=== PATIENT | male | born 1965 | race Caucasian/White ===

== ENCOUNTER → 2017-08-08 07:02 | Outpatient (CLI) | payer OTHER, SELFPAY ==
--- NOTE | 2017-08-08 07:06 | ECHOD_ITS ---
Reason For Study: CAD Procedure This was a 2D Doppler, Color Flow transthoracic echocardiogram. The exam was of fair technical quality due to body habitus. The study was technically difficult. Exam performed in department. Left Ventricle Normal LV size. Segmental dysfunction with preserved ejection fraction (see wall motion). The estimated ejection fraction is 55 %. Transmitral doppler flow suggestive of impaired relaxation of left ventricle. Mid-inferoseptal : Hypokinetic. Mid-anteroseptal : Hypokinetic. Anterior [place] : Hypokinetic. Septal [place] : Hypokinetic. Right Ventricle Normal RV size. Normal systolic function. Atria Normal left atrium. Normal right atrium. No doppler evidence for ASD. Mitral Valve There is no mitral annular calcification. Normal mitral valve. Trivial mitral valve insufficiency. Tricuspid Valve Normal tricuspid valve. Trivial tricuspid valve insufficiency. Unable to estimate RV systolic pressure/pulmonary artery pressure due to technically difficult study. Aortic Valve Trisinus/trileaflet aortic valve. Normal aortic valve. Pulmonic Valve The pulmonic valve is not well visualized. Great Vessels Normal sized aortic root. Pericardium/Pleural No pericardial effusion. MMode/2D Measurements & Calculations LVIDd: 5.0 cm IVSd: 1.1 cm Ao root diam: 3.1 cm LVIDs: 3.8 cm LVPWd: 1.1 cm RVDd: 3.3 cm FS: 25.2 % LAV(MOD-sp4): 33.1 ml EDV(MOD-sp2): 104.0 ml SV(MOD-sp2): 56.5 ml EF(MOD-sp2): 54.4 % LA A4 area: 13.4 cm2 RA A4 area: 12.3 cm2 Doppler Measurements & Calculations MV E max rene: 55.1 cm/sec Lat Peak E' Rene: 11.1 cm/sec Med Peak E' Rene: 7.5 cm/sec MV A max rene: 64.8 cm/sec E/E' lat: 5.0 E/E' med: 7.4 MV E/A: 0.85 Ao V2 max: 98.5 cm/sec LV V1 max: 95.4 cm/sec PA V2 max: 100.9 cm/sec Ao max P.9 mmHg LV V1 max P.6 mmHg PI end-d rene: 123.5 cm/sec Interpretation Summary The study was technically difficult. Segmental dysfunction with preserved ejection fraction (see wall motion). The estimated ejection fraction is 55 %. Trivial mitral valve insufficiency. Trivial tricuspid valve insufficiency. Transmitral doppler flow suggestive of impaired relaxation of left ventricle Ordering Physician: Samuel Jansen Referring Physician: SAMARIA BLAND Performed By: Madeline Moore, DEMARIO, RVT
--- NOTE | 2017-08-08 12:04 | STRESSREP ---
Stress Test Report Date: 08/08/2017 Procedure: Exercise tolerance test/imaging study Indications: Chest pain; CAD; CABG Consent: Per the patient Procedure: The patient exercised on a Zoltan protocol for 4 minutes and 30 seconds completing Stage I and 1 minute 30 seconds of Stage II achieving a peak heart rate of 153 bpm (90 % predicted maximal heart rate) with a peak blood pressure 190/104 mmHg and a peak MET capacity of 6 METs. The baseline ECG demonstrated normal sinus rhythm. The peak exercise ECG demonstrated somatic/motion artifact with no obvious ECG changes. There were no cardiac dysrhythmias pretest, during exercise, or recovery. The functional capacity was considered decreased. There was no complaint of chest discomfort during exercise or recovery. The examination was discontinued secondary to leg discomfort and dyspnea. Impression: 1. Technically adequate (percent predicted maximal heart rate greater than 85%) exercise tolerance test 2. Peak exercise ECG with somatic/motion artifact with no obvious ECG changes 3. Were no cardiac dysrhythmias pretest, during exercise, or recovery. 4. Nuclear images pending Myocardial perfusion imaging study: Technique: The patient was injected with 11.8 mCi of technetium 99m Cardiolite and subsequently rest SPECT Cardiolite nuclear imaging was obtained in the horizontal long, vertical long, and short axis views. The patient exercised on a Zoltan protocol for 4 minutes and 30 seconds completing Stage I and 1 minute 30 seconds of Stage II achieving a peak heart rate of 153 bpm (90 % predicted maximal heart rate) with a peak blood pressure 190/104 mmHg and a peak MET capacity of 6 METs. The patient was injected with 84.1 mCi of technetium 99m Cardiolite and subsequently stress SPECT Cardiolite nuclear imaging was obtained in the horizontal long, vertical long, and short axis views. A gated Cardiolite study at peak stress was obtained. Interpretation: Rest and stress SPECT Cardiolite nuclear imaging status post realignment, normalization, and attenuation correction, demonstrates the appearance of a small area of diminished tracer uptake near the distal anterior and anterior apical segments without significant change between rest and stress. There is end systolic thickening and brightening. The gated Cardiolite study demonstrates myocardial thickening and inward wall motion. The reported LVEF is 55 %. Impression: 1. Rest and stress SPECT Cardiolite nuclear imaging demonstrate a small area of diminished myocardial perfusion/tracer uptake in portions of the distal anterior and anterior apical segments without significant change between rest and stress potentially compatible with an area of previous myocardial injury/infarction although soft tissue attenuation/artifact and physiologic apical thinning cannot be excluded. There are no myocardial perfusion changes consider diagnostic for stress-induced myocardial ischemia. 2. The gated Cardiolite study reports an LVEF of 55 %. This note was generated with [employer] software. It may contain incorrect words, spelling, and punctuation that were not noted in checking the note before signing.
--- NOTE | 2017-08-08 12:13 | STRESSREP_ITS ---
Stress Test Report Date: 08/08/2017 Procedure: Exercise tolerance test/imaging study Indications: Chest pain; CAD; CABG Consent: Per the patient Procedure: The patient exercised on a Zoltan protocol for 4 minutes and 30 seconds completing Stage I and 1 minute 30 seconds of Stage II achieving a peak heart rate of 153 bpm (90 % predicted maximal heart rate) with a peak blood pressure 190/104 mmHg and a peak MET capacity of 6 METs. The baseline ECG demonstrated normal sinus rhythm. The peak exercise ECG demonstrated somatic/motion artifact with no obvious ECG changes. There were no cardiac dysrhythmias pretest, during exercise, or recovery. The functional capacity was considered decreased. There was no complaint of chest discomfort during exercise or recovery. The examination was discontinued secondary to leg discomfort and dyspnea. Impression: 1. Technically adequate (percent predicted maximal heart rate greater than 85% ) exercise tolerance test 2. Peak exercise ECG with somatic/motion artifact with no obvious ECG changes 3. Were no cardiac dysrhythmias pretest, during exercise, or recovery. 4. Nuclear images pending Myocardial perfusion imaging study: Technique: The patient was injected with 11.8 mCi of technetium 99m Cardiolite and subsequently rest SPECT Cardiolite nuclear imaging was obtained in the horizontal long, vertical long, and short axis views. The patient exercised on a Zoltan protocol for 4 minutes and 30 seconds completing Stage I and 1 minute 30 seconds of Stage II achieving a peak heart rate of 153 bpm (90 % predicted maximal heart rate) with a peak blood pressure 190/104 mmHg and a peak MET capacity of 6 METs. The patient was injected with 84.1 mCi of technetium 99m Cardiolite and subsequently stress SPECT Cardiolite nuclear imaging was obtained in the horizontal long, vertical long, and short axis views. A gated Cardiolite study at peak stress was obtained. Interpretation: Rest and stress SPECT Cardiolite nuclear imaging status post realignment, normalization, and attenuation correction, demonstrates the appearance of a small area of diminished tracer uptake near the distal anterior and anterior apical segments without significant change between rest and stress. There is end systolic thickening and brightening. The gated Cardiolite study demonstrates myocardial thickening and inward wall motion. The reported LVEF is 55 %. Impression: 1. Rest and stress SPECT Cardiolite nuclear imaging demonstrate a small area of diminished myocardial perfusion/tracer uptake in portions of the distal anterior and anterior apical segments without significant change between rest and stress potentially compatible with an area of previous myocardial injury/ infarction although soft tissue attenuation/artifact and physiologic apical thinning cannot be excluded. There are no myocardial perfusion changes consider diagnostic for stress-induced myocardial ischemia. 2. The gated Cardiolite study reports an LVEF of 55 %. This note was generated with [employer] software. It may contain incorrect words, spelling, and punctuation that were not noted in checking the note before signing.
== END ==
LOC: CVS 07:03
PROVIDERS: Family Provider Internal Medicine; PCP Internal Medicine; Visit Provider Internal Medicine Cardiovascular Disease
DX: I25.10 Atherosclerotic heart disease of native coronary artery without angina pectoris (principal); I25.2 Old myocardial infarction; E78.5 Hyperlipidemia, unspecified; I10 Essential (primary) hypertension; I49.3 Ventricular premature depolarization; Z95.1 Presence of aortocoronary bypass graft
CPT/HCPCS: 78452; 93017; 93306; A9500; A4216

== ENCOUNTER 2021-06-23 18:04 | Outpatient (CLI) | payer BC, SELFPAY ==
--- NOTE | 2021-06-23 18:24 | US_ITS ---
STUDY: NECK SOFT TISSUE ULTRASOUND REASON FOR EXAM: Male, 55 years old. RT LYMPHADENITIS TECHNIQUE: Ultrasound evaluation of the neck soft tissue was performed with real-time and static mayberry-scale imaging. COMPARISON: None. FINDINGS: Right sided lymph nodes are noted measuring 1.3 to 2.3 cm in maximum size. These nodes are slightly enlarged but normal in morphology. They are likely reactive in nature. Right submandibular gland is 7.5 x 6.3 x 5.2 cm with a 1.8 cm stone. US/Head/Neck Soft Tissue IMPRESSION: Mildly enlarged right-sided nodes. There is a stone noted within the right submandibular gland. Electronically Signed: Babar Jaquez DO at 20:09 EDT ,
== END 2021-06-23 23:59 | disposition home or self-care (01) ==
LOC: US 18:05
PROVIDERS: PCP Internal Medicine; Visit Provider Nurse Practitioner
DX: I88.9 Nonspecific lymphadenitis, unspecified (principal)
CPT/HCPCS: 76536

== ENCOUNTER 2021-07-08 16:56 | Emergency (ER) | payer BC, SELFPAY ==
[2021-07-08 16:59] VITALS: BP 145/96; PULSE 80; RESP 18; TEMP 36.2; O2SAT 95; BMI 32.8
--- NOTE | 2021-07-08 17:15 | EDS_ITS ---
HPI History of Present Illness Chief Complaint: Other, Pain/Inj Narrative Narrative: Patient presents with obstruction of his submandibular salivary gland. He states he has history of multiple submandibular stones. On occasion he will get swelling in his right lower jaw. He gets put on antibiotics. He states he had a CT scan done 2 to 3 weeks ago which did show that he had a stone. He follows up with Dr. Burnett, who is offered previous removal of his submandibular gland but the patient declines. Patient noticed that on the floor of his mouth on the right side that he feels as if the stone is present and about to come out. He states he can feel it that it is roughened surface but cannot grab it to pull it out. He denies any fevers or chills. He states the swelling of his submandibular gland has gone down. He presents trying to have removal of the stone in his duct on the floor of his mouth. He denies any fevers or chills. No difficulty swallowing or breathing. [facility] Medical History Acute coronary syndrome Atherosclerotic heart disease of [place] coronary artery without angina pectoris Essential hypertension Hyperlipidemia Hypertension Hypothyroidism Old myocardial infarction Palpitations Premature ventricular contraction Home Medications amlodipine 2.5 mg tablet 2.5 mg PO QDAY 07/24/17 [History Last Taken Unknown] aspirin 81 mg tablet,delayed release 81 mg PO QDAY 07/24/17 [History Last Taken Unknown] citalopram 20 mg tablet 20 mg PO QDAY 07/24/17 [History Last Taken Unknown] clopidogrel 75 mg tablet 75 mg PO QDAY 07/24/17 [History Last Taken Unknown] hydrochlorothiazide 25 mg tablet 25 mg PO QDAY 07/24/17 [History Last Taken Unknown] levothyroxine 88 mcg tablet 88 mcg PO QDAY 07/24/17 [History Last Taken Unknown] metoprolol tartrate 25 mg tablet 12.5 mg PO BID tab 07/24/17 [History Last Taken Unknown] nitroglycerin 0.4 mg sublingual tablet 0.4 mg SUBLINGUAL Q5-15M PRN 07/24/17 [History Last Taken Unknown] simvastatin 20 mg tablet 20 mg PO QPM 07/24/17 [History Last Taken Unknown] lisinopril 2.5 mg tablet 2.5 mg PO QDAY #90 tab 10/06/19 [Rx Last Taken Unknown] Allergy/AdvReac Type Severity Reaction Status Date / Time No Known Allergies Allergy Unverified 07/08/21 16:57 Family History Mother Diabetes Surgical History Aortocoronary bypass status (~12/2011) Social History Smoking Status: Unknown if ever smoked alcohol intake: never substance use type: does not use ROS ROS ED ROS Narrative Constitutional: No fever, no chills. HEENT: No sore throat. No neck pain. No loss of vision. No rhinorrhea. Stone in submandibular duct area near molar of right lower jaw. Cardiovascular: No chest pain. No palpitations. No pedal edema. Respiratory: No cough, no shortness of breath. Abdominal: No abdominal pain. No nausea. No vomiting. Genitourinary: No dysuria. No hematuria. Musculoskeletal: No myalgias. No arthralgias. Neurologic: No headaches. No dizziness. No lightheadedness. Skin: No rash. No change in color. Psychiatric: No depression. No anxiety. EXAM Physical Exam Narrative Exam Narrative: Afebrile. Vital signs noted. HEENT: Normocephalic. Atraumatic. PERRL, EOMI. Neck soft and supple. No point tenderness or step off. No drooling or trismus. Palpation to the floor of his mouth near his molar does reveal a somewhat large salivary stone. No fluctuance. No woody edema. Airway patent. No drooling or trismus. Cardiovascular: Regular rate and rhythm. No murmurs, rubs, or gallops appreciated. Respiratory: No tachypnea. Lungs clear to auscultation bilaterally. Gastrointestinal: Abdomen soft, nontender, with normoactive bowel sounds. No rebound or guarding. Neurological: Awake. Alert. Nonfocal, nonlateralizing. Skin: No rash. Normal color. No pallor. Musculoskeletal: No pedal edema. Full range of motion extremities. Const Vital Signs: 07/08/21 16:59 07/08/21 17:33 Temperature 97.1 F L Temperature Source Temporal Pulse Rate 80 Respiratory Rate 18 Respiratory Pattern Normal Blood Pressure 145/96 H Blood Pressure Mean 112 Pulse Ox 95 Oxygen Delivery Method Room Air MDM MDM MDM Narrative Medical decision making narrative: I discussed the patient with his fabric worker foreman, Dr. Burnett. He states that based on the location, it is probably 3 to 4 mm away from the puncta. He did recommend gentle milking of the duct. I did perform this and milked the stone forward, and it was removed. It is a sizable stone probably 5 mm in size at least. Patient's discomfort was fully relieved. He will still follow-up with his fabric worker foreman. I feel he can be discharged safely home. He had been told of the risk of scarring of the duct and passing a stone that large. He acknowledges an understanding. Disposition is discharged home in improved and stable condition. Discharge Plan Triage Chief Complaint: Other, Pain/Inj ED Provider: Justin Jain Dx/Rx/DC Orders Clinical Impression: Submandibular sialodocholithiasis, Submandibular duct obstruction Instructions: ED Salivary Gland Stones Prescriptions: No Action nitroglycerin 0.4 mg tablet, sublingual 0.4 mg SUBLINGUAL Q5-15M PRNRF: 0 clopidogrel 75 mg tablet 75 mg PO QDAY RF: 0 metoprolol tartrate 25 mg tablet 12.5 mg PO BID RF: 0 amlodipine 2.5 mg tablet 2.5 mg PO QDAY RF: 0 levothyroxine 88 mcg tablet 88 mcg PO QDAY RF: 0 hydrochlorothiazide 25 mg tablet 25 mg PO QDAY RF: 0 simvastatin 20 mg tablet 20 mg PO QPM RF: 0 citalopram 20 mg tablet 20 mg PO QDAY RF: 0 aspirin 81 mg tablet,delayed release (DR/EC) 81 mg PO QDAY RF: 0 lisinopril 2.5 mg tablet 2.5 mg PO QDAY Qty: 90 RF: 0 Primary Care Provider: Becky Crook Referrals: Hema Hudson MD [STAFF PHYSICIAN] - As Needed Becky Crook DO [Primary Care Provider] - Disposition Disposition: Home, Self Care
== END 2021-07-08 17:56 | disposition home or self-care (01) ==
PROVIDERS: Emergency Provider Emergency Medicine; PCP Internal Medicine; Visit Provider Emergency Medicine
DX: K11.5 Sialolithiasis (principal); I25.10 Atherosclerotic heart disease of native coronary artery without angina pectoris; I10 Essential (primary) hypertension; E78.5 Hyperlipidemia, unspecified; E03.9 Hypothyroidism, unspecified; I25.2 Old myocardial infarction; Z95.1 Presence of aortocoronary bypass graft
CPT/HCPCS: 99282

== ENCOUNTER 2021-11-10 08:33 | Emergency (ER) | payer BC, SELFPAY ==
[2021-11-10 08:35] VITALS: BP 147/87; PULSE 94; RESP 14; TEMP 36.7; O2SAT 97; BMI 33.9
--- NOTE | 2021-11-10 08:48 | EDS_ITS ---
HPI History of Present Illness Chief Complaint: Headache Informant: patient Onset/Context/Timing Onset: Yesterday Context: Gradual Timing: Continuous Quality -Headache: Positive for Other (Pressure) Location: Between eyes Worsened by: Nothing Relieved by: Nothing Associated Symptoms/Injury Associated Symptoms: Positive for Nausea, Vomiting and Sinus Pressure; Negative for Fever, Sore Throat, Numbness, Tingling, Preceding Aura, Visual Changes, Blurred Vision, Photophobia or Visual Loss Injury - FOSTER: Negative for Direct Trauma Narrative Narrative: Patient presents with a headache that began last evening. Patient states it is gradually gotten worse. Patient states it feels like somebody is pushing between his eyes. Patient denies any radiation of the pain. Patient states nothing makes it worse and nothing makes it better. Patient admits to some nausea and one episode of vomiting today. Patient denies any fevers or chills. Patient denies any visual changes or scotoma. Patient denies any photophobia. Patient states he did feel lightheaded today. Patient denies any recent COVID- 19 exposures. Patient has not been vaccinated against COVID-19. [facility] Medical History Acute coronary syndrome Atherosclerotic heart disease of [place] coronary artery without angina pectoris Essential hypertension Hyperlipidemia Hypertension Hypothyroidism Old myocardial infarction Palpitations Premature ventricular contraction Home Medications amlodipine 2.5 mg tablet 2.5 mg PO QDAY 07/24/17 [History Last Taken Unknown] aspirin 81 mg tablet,delayed release 81 mg PO QDAY 07/24/17 [History Last Taken Unknown] citalopram 20 mg tablet 20 mg PO QDAY 07/24/17 [History Last Taken Unknown] clopidogrel 75 mg tablet 75 mg PO QDAY 07/24/17 [History Last Taken Unknown] hydrochlorothiazide 25 mg tablet 25 mg PO QDAY 07/24/17 [History Last Taken Unknown] levothyroxine 88 mcg tablet 75 mcg PO QDAY 07/24/17 [History Last Taken Unknown] metoprolol tartrate 25 mg tablet 12.5 mg PO BID 07/24/17 [History Last Taken Un known] nitroglycerin 0.4 mg sublingual tablet 0.4 mg sublingual Q5-15M PRN 07/24/17 [History Last Taken Unknown] simvastatin 20 mg tablet 20 mg PO QPM 07/24/17 [History Last Taken Unknown] lisinopril 2.5 mg tablet 2.5 mg PO QDAY #90 tabs 10/06/19 [Rx Last Taken Unknown] Allergy/AdvReac Type Severity Reaction Status Date / Time No Known Allergies Allergy Unverified 11/10/21 08:34 Family History Mother Diabetes Surgical History Aortocoronary bypass status (~12/2011) Social History Smoking Status: Unknown if ever smoked alcohol intake: never substance use type: does not use ROS ROS ED Constitutional Constitutional ED: Denies chills or fever(s) Eyes Eyes: Denies blurry vision or change in vision ENT ENT ED: Denies rhinorrhea or sore throat Cardiovascular Cardiovascular: Denies chest pain or palpitations Respiratory/Chest Respiratory/Chest: Denies cough or dyspnea Gastrointestinal Gastrointestinal: Reports nausea and vomiting Genitourinary Genitourinary ED: Denies dysuria or hematuria Musculoskeletal Musculoskeletal: Denies back pain or neck pain Integumentary Denies abscess or rash Neurologic Neurologic: Reports headache(s); Denies weakness Allergic/Immunologic Allergic/Immunologic ED: Denies mouth swelling or urticaria EXAM Physical Exam Const Vital Signs: 11/10/21 08:35 Temperature 98.1 F Temperature Source Oral Pulse Rate 94 Respiratory Rate 14 Blood Pressure 147/87 H Blood Pressure Mean 107 Pulse Ox 97 Oxygen Delivery Method Room Air Positive well nourished and well developed General Appearance ED: well developed and NAD HEENT Reports moist mucous membranes Negative for temporal artery tenderness Face and Sinus: Negative for sinus tenderness Neck supple and no JVD Resp normal respiratory effort and clear to auscultation bilaterally Cardio regular rate, regular rhythm and no murmurs GI normal to inspection, nondistended, normoactive bowel sounds and non-tender Palpation: soft Extremity normal to inspection General Extremety ED: Negative for edema or tenderness General Extremity: Negative for edema Neuro oriented x3, CN's II-XII intact bilaterally and no sensory deficits noted Sensorium / Orientation: alert Motor Exam: strength 5/5 throughout Psych mental status grossly normal Skin no rashes or lesions noted MDM MDM MDM Narrative Medical decision making narrative: Patient was given IV fluids, Reglan, and Benadryl. CT scan of the brain was obtained. There is no acute intracranial abnormality. This was interpreted by the radiologist and reviewed by myself. Patient states his headache was improving on reevaluation. Patient was given injection of Toradol here. Patient was instructed to rest in a dark quiet room. Patient was instructed to follow-up with his primary care physician in 5 to 7 days. Patient understood and was agreeable with the plan. All questions were answered. Radiography Diagnostic Testing: Clinical Impression(s) from Imaging Studies Brain CT 11/10/21 08:58 IMPRESSION: Chronic involutional changes of the brain. Electronically Signed: Santi Sutherland MD at 10:09 EDT , Discharge Plan Triage Chief Complaint: Headache ED Provider: Mil Olvera Dx/Rx/DC Orders Clinical Impression: Headache, Essential hypertension Instructions: ED Headache Unspecified Prescriptions: No Action nitroglycerin 0.4 mg tablet, sublingual 0.4 mg SUBLINGUAL Q5-15M PRN clopidogrel 75 mg tablet 75 mg PO QDAY metoprolol tartrate 25 mg tablet 12.5 mg PO BID amlodipine 2.5 mg tablet 2.5 mg PO QDAY levothyroxine 88 mcg tablet 75 mcg PO QDAY hydrochlorothiazide 25 mg tablet 25 mg PO QDAY simvastatin 20 mg tablet 20 mg PO QPM citalopram 20 mg tablet 20 mg PO QDAY aspirin 81 mg tablet,delayed release (DR/EC) 81 mg PO QDAY lisinopril 2.5 mg tablet 2.5 mg PO QDAY Qty: 90 0RF Primary Care Provider: Becky Crook Referrals: Becky Crook DO [Primary Care Provider] - 5-7 Days Disposition Disposition: Home, Self Care
--- NOTE | 2021-11-10 08:58 | CT_ITS ---
STUDY: CT BRAIN WITHOUT CONTRAST REASON FOR EXAM: Male, 55 years old. Pain RADIATION DOSAGE (If Supplied By Facility): CTDIvol = ( 44.99 ) mGy, DLP = ( 846.73 ) mGycm TECHNIQUE: Transaxial CT imaging of the brain was performed without administration of intravenous contrast material. Individualized dose optimization techniques were used for this CT. COMPARISON: No relevant priors. FINDINGS: Normal soft tissue structures. Normal calvarium. There is mild cerebral atrophy with widening of the extra-axial spaces and ventricular dilatation. There are areas of decreased attenuation within the white matter tracts of the supratentorial brain, consistent with microvascular disease changes. Normal basal ganglia and thalami. Normal brainstem. Normal cerebellum. There is no intracranial hemorrhage. There are no findings of an acute ischemic infarction. Total thickening in the right sphenoid sinus consistent with chronic sinusitis. CT/Brain/Head without Contrast IMPRESSION: Chronic involutional changes of the brain. Electronically Signed: Santi Sutherland MD at 10:09 EDT ,
[2021-11-10] MEDS: Metoclopramide 10 MG/2 ML Vial IV (09:32)
[2021-11-10] MEDS: DiphenhydrAMINE 50 MG/ML Syringe 25 MG IV (09:32)
[2021-11-10] MEDS: 0.9% Normal Saline 1,000 ML 999 ML IV (09:32)
[2021-11-10 10:36] VITALS: BP 128/75; O2SAT 93
[2021-11-10] MEDS: Ketorolac 30 MG/ML Syringe IV (10:46)
== END 2021-11-10 10:51 | disposition home or self-care (01) ==
PROVIDERS: Emergency Provider Emergency Medicine; PCP Internal Medicine; Visit Provider Emergency Medicine
DX: R51.9 Headache, unspecified (principal); R11.2 Nausea with vomiting, unspecified; I25.10 Atherosclerotic heart disease of native coronary artery without angina pectoris; Z28.310 Unvaccinated for COVID-19; I10 Essential (primary) hypertension; E78.5 Hyperlipidemia, unspecified; Z95.1 Presence of aortocoronary bypass graft; I25.2 Old myocardial infarction
CPT/HCPCS: 70450; 99283; J7030; A4216

== ENCOUNTER 2021-11-16 01:04 | Emergency (ER) | payer BC, SELFPAY ==
[2021-11-16 01:06] VITALS: BP 165/92; PULSE 76; RESP 29; TEMP 37.2; O2SAT 98; BMI 32.5
[2021-11-16] MEDS: 0.9% Normal Saline 1,000 ML 999 ML IV (02:04)
[2021-11-16] MEDS: Ondansetron 4 MG/2 ML Vial IV (02:04)
[2021-11-16 02:14] LABS: Absolute Neutrophil Count 1.4 X10^3/uL (2.0-7.7); Basophil# 0.02 X10^3/uL; Basophil% 0.5 % (0-1); Eosinophil# 0.02 X10^3/uL; Eosinophils% 0.5 % (0-5); Hematocrit 52.6 % (40-54); Lymphocyte % 55.4 % (19-41); Mean Corp Hgb Conc 36.7 g/dL (32-36); Mean Corpuscular Volume 90.1 fL (80-94); Mean Platelet Vol. 10.1 fl (6.2-12.0); Monocyte# 0.46 X10^3/uL; Monocyte% 10.6 % (0-10); NRBC Flagged by Analyzer 0 % (0-5); Neutrophil # 1.42 X10^3/uL (2.7-7.7); Neutrophil % 32.8 % (47-70); Platelet Count 117 K/mm3 (150-450); RBC Distribution Width CV 12.1 % (11.6-14.6); Red Blood Count 5.84 M/mm3 (4.6-6.2); White Blood Count 4.3 K/mm3 (4.4-11.0)
[2021-11-16 02:15] LABS: Differential Indicated SCAN CRITERIA MET; Hemoglobin 19.3 g/dL (13.0-16.5)
[2021-11-16 02:40] LABS: AST(SGOT) 40 U/L (15-37); Alanine Aminotransfer ALT/SGPT 30 U/L (16-61); Alkaline Phosphatase 80 U/L (45-117); Anion Gap 12 (5-15); BUN 19 mg/dL (7-18); BUN/Creat Ratio 19.8 RATIO (10-20); Bilirubin, Direct 0.18 mg/dL (0.00-0.30); Calcium,Total 9.2 mg/dL (8.5-10.1); Chloride 107 mmol/L (98-107); Creatinine, Serum 0.96 mg/dL (0.70-1.30); EST Glomerular Filtration Rate 86 mL/min (>60); Est Glom Filt Rate - Afr Amer 105 mL/min (>60); Estimated Creatinine Clearance 81.29 ml/min; Globulin 3.7 g/dL (2.2-4.2); Glucose 90 mg/dL (74-106); Lipase 390 U/L (73-393); Magnesium 2.2 mg/dL (1.6-2.6); Potassium 3.1 mmol/L (3.5-5.1); Protein, Total 7.7 g/dL (6.4-8.2); Sodium Level 140 mmol/L (136-145)
[2021-11-16 03:13] LABS: Differential Comment SCANNED
--- NOTE | 2021-11-16 03:18 | EDS_ITS ---
HPI History of Present Illness Chief Complaint: Weakness Narrative Narrative: Patient is a 55-year-old male with past medical history hypothyroidism hyperlipidemia known CAD with previous bypass in 2011 and hypertension. He states for about 5 days he has had severe generalized fatigue with nausea without vomiting. He states that his mother stays with him and she was sick just prior to him becoming sick. He states however his mother was able to resolve her symptoms in approximately 3 days and its been 5-6 for him without any symptom improvement and secondary to this he comes in for evaluation [facility] Medical History Acute coronary syndrome Atherosclerotic heart disease of [place] coronary artery without angina pectoris Essential hypertension Hyperlipidemia Hypertension Hypothyroidism Old myocardial infarction Palpitations Premature ventricular contraction Home Medications amlodipine 2.5 mg tablet 2.5 mg PO QDAY 07/24/17 [History Last Taken Unknown] aspirin 81 mg tablet,delayed release 81 mg PO QDAY 07/24/17 [History Last Taken Unknown] hydrochlorothiazide 25 mg tablet 25 mg PO QDAY 07/24/17 [History Last Taken Unknown] levothyroxine 88 mcg tablet 75 mcg PO QDAY 07/24/17 [History Last Taken Unknown] metoprolol tartrate 25 mg tablet 25 mg PO BID 07/24/17 [History Last Taken Unknown] nitroglycerin 0.4 mg sublingual tablet 0.4 mg sublingual Q5-15M PRN 07/24/17 [History Last Taken Unknown] simvastatin 20 mg tablet 20 mg PO QPM 07/24/17 [History Last Taken Unknown] lisinopril 2.5 mg tablet 2.5 mg PO QDAY #90 tabs 10/06/19 [Rx Last Taken Unknown] amlodipine 5 mg tablet mg 11/16/21 [History Last Taken Unknown] nirmatrelvir 300 mg (150 mg x2)-ritonavir 100 mg tablet,dose pack(EUA) (Paxlovid) See Rx Instructions PO .COMPLEX #30 tabs 11/16/21 [Rx Last Taken Unknown] ondansetron 4 mg disintegrating tablet 4 mg PO TID PRN nausea and vomiting #21 tabs 11/16/21 [Rx Last Taken Unknown] simvastatin 20 mg tablet 20 mg PO DAILY 11/16/21 [History Last Taken Unknown] Allergy/AdvReac Type Severity Reaction Status Date / Time No Known Allergies Allergy Unverified 11/10/21 08:34 Family History Mother Diabetes Surgical History Aortocoronary bypass status (~12/2011) Social History Smoking Status: Current some day smoker tobacco type: cigarettes alcohol intake: never substance use type: does not use ROS ROS ED Constitutional Constitutional ED: Reports other Details: Positive fatigue ; Denies chills or fever(s) ENT ENT ED: Reports rhinorrhea; Denies sore throat Cardiovascular Cardiovascular: Denies chest pain Respiratory/Chest Respiratory/Chest: Denies cough or dyspnea Gastrointestinal Gastrointestinal: Reports nausea; Denies abdominal pain, diarrhea or vomiting Genitourinary Genitourinary ED: Denies dysuria Musculoskeletal Musculoskeletal: Reports myalgias Integumentary Denies rash Neurologic Neurologic: Denies headache(s) Hematologic/Lymphatic Hematologic/Lymphatic: Denies easy bleeding or easy bruising EXAM Physical Exam Const Vital Signs: 11/16/21 01:06 11/16/21 01:10 11/16/21 03:29 Temperature 98.9 F Temperature Source Oral Pulse Rate 76 76 Respiratory Rate 29 H 17 Respiratory Pattern Normal Blood Pressure 165/92 H 146/92 H Blood Pressure Mean 116 Pulse Ox 98 96 Oxygen Delivery Method Room Air Positive well nourished, well developed and obese General Appearance ED: well developed Nutritional Appearance: obese HEENT Reports dry mucous membranes Mouth ED: Yes dry mucous membranes Mouth: dry mucous membranes Eyes PERRL and EOMs intact bilaterally Neck supple Neck Narrative: Positive anterior cervical if adenopathy noted Resp normal respiratory effort and clear to auscultation bilaterally Cardio regular rate and regular rhythm Rate: other Other Details: Radial pulses are plus 2 out of 4 bilaterally are equal and GI non-distended GI Narrative: Abdomen is obese soft and nondistended with normoactive bowel sounds. There is mild pain on palpation in the midepigastric region without voluntary guarding or rigidity. No pulsatile mass or fluid wave Auscultation: normoactive bowel sounds Palpation: soft Extremity normal to inspection Neuro oriented x3 and CN's II-XII intact bilaterally Sensorium / Orientation: alert Psych mental status grossly normal Skin no rashes or lesions noted Skin Narrative: Skin turgor slightly increased MDM MDM MDM Narrative Medical decision making narrative: Patient presented to the ER in no acute distress with hypertension but otherwise stable vitals. He reported generalized fatigue without any obvious neurologic symptoms. Therefore I felt no need for imaging studies but his history and exam is concerning for dehydration which could lead to acute kidney injury so basic blood work was obtained. Labs showed no clinically significant findings other than he is positive for COVID. At this time he is in no respiratory distress he is not requiring supplemental oxygen he does not have acute kidney injury secondary to his dehydration status. Patient was given 1 L of fluid and did report feeling better after hydration and vitals did improve. Therefore at this time as patient has COVID but is not requiring supplemental oxygen and does not have severe electrolyte derangement or AL[place]ERTINA he is safe for discharge Lab Data Attestation: I reviewed the patient's lab results. Labs: Laboratory Results - last 24 hr 11/16/21 11/16/21 01:14 01:14 WBC 4.3 L RBC 5.84 Hgb 19.3 H* Hct 52.6 MCV 90.1 MCH 33.0 H MCHC 36.7 H RDW Std Deviation 40.0 RDW Coeff of Andrew 12.1 Plt Count 117 L MPV 10.1 Immature Gran % (Auto) 0.200 Neut % (Auto) 32.8 L Lymph % (Auto) 55.4 H [place] % (Auto) 10.6 H Eos % (Auto) 0.5 Baso % (Auto) 0.5 Absolute Neuts (auto) 1.4 L Absolute Lymphs (auto) 2.40 Nucleated RBC % 0 Differential Comment SCANNED Diff Path Review May foll Sodium 140 Potassium 3.1 L Chloride 107 Carbon Dioxide 21.0 Anion Gap 12 BUN 19 H Creatinine 0.96 Estim Creat Clear Calc 81.29 Est GFR (MDRD) Af Amer 105 Est GFR (MDRD) Non-Af 86 BUN/Creatinine Ratio 19.8 Glucose 90 Calcium 9.2 Magnesium 2.2 Total Bilirubin 0.90 Direct Bilirubin 0.18 AST 40 H ALT 30 Alkaline Phosphatase 80 Total Protein 7.7 Albumin 4.0 Globulin 3.7 Lipase 390 Discharge Plan Triage Chief Complaint: Weakness ED Provider: Elvis Maldonado Dx/Rx/DC Orders Clinical Impression: COVID-19, Dehydration Instructions: Coronavirus Disease 2019 (COVID-19): Caring for Yourself or Others, ED Dehydration (Adult) Prescriptions: New ondansetron 4 mg tablet,disintegrating 4 mg PO TID PRN (Reason: nausea and vomiting) Qty: 21 0RF Paxlovid (EUA) 300 mg (150 mg x 2)-100 mg tablets,dose pack See Rx Instructions .ROUTE .COMPLEX Qty: 30 0RF Rx Instructions: take TWO 150 mg tablets of nirmatrelvir with ONE 100 mg tablet of ritonavir twice daily for 5 days No Action nitroglycerin 0.4 mg tablet, sublingual 0.4 mg SUBLINGUAL Q5-15M PRN metoprolol tartrate 25 mg tablet 25 mg PO BID amlodipine 2.5 mg tablet 2.5 mg PO QDAY levothyroxine 88 mcg tablet 75 mcg PO QDAY hydrochlorothiazide 25 mg tablet 25 mg PO QDAY simvastatin 20 mg tablet 20 mg PO QPM aspirin 81 mg tablet,delayed release (DR/EC) 81 mg PO QDAY amlodipine 5 mg tablet simvastatin 20 mg tablet 20 mg PO DAILY Label Comments: TAKE 1 TABLET BY MOUTH ONCE DAILY lisinopril 2.5 mg tablet 2.5 mg PO QDAY Qty: 90 0RF Primary Care Provider: Becky Crook Referrals: Becky Crook DO [Primary Care Provider] - Activity Restrictions/Additional Instructions: Please keep yourself hydrated and use Tylenol and/or Motrin for fever/pain control. Take the prescriptions as directed to help resolve your infection faster and if you have any further concerns or worsening of symptoms return to the ER for repeat evaluation Disposition Disposition: Home, Self Care Discharge Date/Time: 11/16/21 03:29
[2021-11-16 03:29] VITALS: BP 146/92; PULSE 76; RESP 17; O2SAT 96
[2021-11-16 08:49] LABS: Pathologist Review Reviewed
== END 2021-11-16 03:29 | disposition home or self-care (01) ==
PROVIDERS: Emergency Provider Emergency Medicine; PCP Internal Medicine; Visit Provider Emergency Medicine
DX: U07.1 COVID-19 (principal); E86.0 Dehydration; I25.10 Atherosclerotic heart disease of native coronary artery without angina pectoris; E78.5 Hyperlipidemia, unspecified; I10 Essential (primary) hypertension; E03.9 Hypothyroidism, unspecified; Z95.1 Presence of aortocoronary bypass graft; I25.2 Old myocardial infarction; F17.210 Nicotine dependence, cigarettes, uncomplicated; Z79.82 Long term (current) use of aspirin
CPT/HCPCS: 80048; 80076; 83690; 83735; 85025; 87811; 96361; 96374; 99283; J7030; A4216; J2405

== ENCOUNTER 2021-11-18 20:03 | Emergency (ER) | payer BC, SELFPAY ==
[2021-11-18 20:04] VITALS: BP 121/88; PULSE 78; RESP 16; TEMP 36.6; O2SAT 99; BMI 32.1
--- NOTE | 2021-11-18 20:34 | ED.VIS.GI ---
HPI HPI - GI History of Present Illness Chief Complaint: Abd Pain Informant: patient Abdominal Pain/Flank Pain Onset: Days Context: Gradual Onset Timing: Intermittent Quality: Cramping Location: Diffuse Current Severity: Mild Maximum Severity: Mild Worsened by: Nothing Relieved by: Nothing Nausea/Vomiting/Emesis GI Symptom: Positive for Nausea; Negative for Vomiting Onset: Days Severity: Mild Diarrhea/Melena/Hematochezia GI Symptom: Negative for Diarrhea, Melena or Hematochezia Associated Symptoms Associated Symptoms: Negative for Dysuria, Frequency, Hematuria or Urgency Narrative Narrative: 55-year-old male history of coronary disease with prior MS and [address] way bypass. Diagnosed with COVID within the last several days treated in ER on had a negative work-up otherwise. States he has had abdominal cramping. His labs at that time were unremarkable. He has been started on antiviral medication Paxlovid. Denies any fever or chills. Mild nausea no vomiting. No trouble urinating and he is moving his bowels. No melena. Prior similar symptoms: Yes Recent Illness/Hospitalization: No PFSH PFSH Medical History Acute coronary syndrome Atherosclerotic heart disease of [place] coronary artery without angina pectoris Essential hypertension Hyperlipidemia Hypertension Hypothyroidism Old myocardial infarction Palpitations Premature ventricular contraction Smoker Home Medications aspirin 81 mg tablet,delayed release 81 mg PO QDAY 07/24/17 [History Last Taken Unknown] hydrochlorothiazide 25 mg tablet 25 mg PO QDAY 07/24/17 [History Last Taken Unknown] levothyroxine 88 mcg tablet 75 mcg PO QDAY 07/24/17 [History Last Taken Unknown] metoprolol tartrate 25 mg tablet 25 mg PO BID 07/24/17 [History Last Taken Unknown] nitroglycerin 0.4 mg sublingual tablet 0.4 mg sublingual Q5-15M PRN Nausea 07/24/17 [History Last Taken Unknown] simvastatin 20 mg tablet 20 mg PO QPM 07/24/17 [History Last Taken Unknown] amlodipine 5 mg tablet 5 mg PO DAILY 11/16/21 [History Last Taken Unknown] nirmatrelvir 300 mg (150 mg x2)-ritonavir 100 mg tablet,dose pack(EUA) (Paxlovid) See Rx Instructions PO .COMPLEX #30 tabs 11/16/21 [Rx Last Taken Unknown] ondansetron 4 mg disintegrating tablet 4 mg PO TID PRN nausea and vomiting #21 tabs 08/18/22 [Rx Last Taken Unknown] simvastatin 20 mg tablet 20 mg PO DAILY 11/16/21 [History Last Taken Unknown] potassium chloride 20 mEq tablet,extended release(part/cryst) 20 meq PO BID 7 days #14 tabs 11/18/21 [Rx Last Taken Unknown] Allergy/AdvReac Type Severity Reaction Status Date / Time No Known Allergies Allergy Unverified 11/10/21 08:34 Family History Mother Diabetes Surgical History Aortocoronary bypass status (~12/2011) Social History Smoking Status: Current some day smoker tobacco type: cigarettes alcohol intake: never substance use type: does not use ROS ROS ED ROS Narrative Nausea. Abdominal cramping. Review of Systems ROS Unobtainable: Denies due to encephalopathy Constitutional Constitutional ED: Denies chills or fever(s) ENT ENT ED: Denies ear pain Cardiovascular Cardiovascular: Denies chest pain Respiratory/Chest Respiratory/Chest: Denies cough or dyspnea Gastrointestinal Gastrointestinal: Reports abdominal pain and nausea; Denies constipation, diarrhea, melena or vomiting Genitourinary Genitourinary ED: Denies dysuria or hematuria Musculoskeletal Musculoskeletal: Denies arthralgias or back pain Integumentary Denies abscess or Abrasions Neurologic Neurologic: Denies headache(s) Psychiatric Psychiatric: Denies anxiety Endocrine Endocrinology: Denies polydipsia Hematologic/Lymphatic Hematologic/Lymphatic: Denies easy bleeding Allergic/Immunologic Allergic/Immunologic ED: Denies mouth swelling EXAM Physical Exam Narrative Exam Narrative: Voicemail distress. Vital signs stable afebrile. Pulse ox 99% on room air no hypoxia. No distress. H EENT exam unremarkable neck nontender. Lungs clear to auscultation. Heart regular rhythm rate about 80 no murmur. Abdomen soft nondistended normal bowel sounds no peritoneal signs. No hernia or mass. No obstruction. Soft. No localizing tenderness. Moving all 4 extremities. Back nontender. Neurologic exam normal. Const Vital Signs: 11/18/21 20:04 11/18/21 21:55 Temperature 97.9 F Temperature Source Temporal Pulse Rate 78 61 Respiratory Rate 16 20 H Blood Pressure 121/88 H 131/74 H Blood Pressure Mean 99 93 Pulse Ox 99 98 Oxygen Delivery Method Room Air Room Air Positive well nourished, well developed and obese; Negative for cachectic, contractures or unkempt General Appearance ED: well developed and NAD; Negative for unkempt, cachectic, contractures or pallor Nutritional Appearance: obese; Negative for cachectic HEENT Reports dry mucous membranes; Denies moist mucous membranes normocephalic and atraumatic; Negative for trauma or tenderness Mouth ED: Yes dry mucous membranes Mouth: dry mucous membranes Eyes PERRL and EOMs intact bilaterally General Eye ED: Negative for pale conjunctiva or scleral icterus Neck no lymphadenopathy, supple and no JVD General: Negative for tenderness Carotids: Negative for other Lymph Lymphatic: Negative for other Resp normal respiratory effort and clear to auscultation bilaterally Effort and Inspection: Negative for respiratory distress Auscultation: Negative for rales, rhonchi or wheezes Cardio regular rate, regular rhythm, S1 normal heart sound, S2 normal heart sound and no murmurs Rate: Negative for bradycardia Rhythm: Negative for abnormal rhythm GI non-tender, non-distended and no masses Inspection: Negative for abdominal distention Auscultation: normoactive bowel sounds Palpation: soft; Negative for tender, guarding, rigid, hepatomegaly, splenomegaly, hernia, mass, pulsatile mass or rebound tenderness present Back/Spine no CVA tenderness General Back: Negative for CVA tenderness Cervical Spine: Negative for cervical spine tenderness Thoracic Spine / Upper Back: Negative for thoracic spinal tenderness Lumbar Spine / Lower Back: Negative for lumbar spinal tenderness Coccyx: Negative for other Extremity full ROM General Extremety ED: Negative for edema or tenderness General Extremity: Negative for edema Neuro moves all extremities Sensorium / Orientation: alert, oriented to person, oriented to place and oriented to time; Negative for orientation impaired, confused, lethargic or stuporous Motor Exam: strength 5/5 throughout Psych mental status grossly normal and thought process normal Appearance: Negative for unkempt Attitude: No agitated Mood & Affect: anxious; Negative for depressed Skin no wounds General Skin Exam: Negative for jaundice or pallor Lesions: no lesions Rashes: no rashes MDM MDM MDM Narrative Medical decision making narrative: Middle-age male recently COVID-positive today abdominal cramping. He is a benign exam. I reviewed his labs needed today they were unremarkable. I do not think he needs imaging. He will be treated with IV fluids for dehydration. Zofran for nausea. Bentyl for cramping and I will repeat his labs. Repeat exam patient is doing well at 11:27 PM. Patient doing well. He will be given oral potassium for his hypokalemia. To be discharged home with a prescription of potassium for a week. He knows to do plenty of fluids and rest. Follow-up with his primary care physician is not improving return if he is feeling worse. I do not feel like he needs any imaging at this time. His abdomen is completely benign and nontender. Lab Data Attestation: I reviewed the patient's lab results. Lab results narrative: CBC shows a white count of 5.5. H&H of 18 and 51. Platelets are below normal at 142. Electrolytes show potassium 2.8. Gap of 12. BUN 23 creatinine 1.12. Total bilirubin 1.5. Otherwise liver enzymes unremarkable. Lipase normal at 169. Labs not significantly changed from 2 days ago except for the potassium of 2.8. Labs: Laboratory Results - last 24 hr 11/18/21 11/18/21 20:40 20:40 WBC 5.5 RBC 5.67 Hgb 18.7 H* Hct 51.1 MCV 90.1 MCH 33.0 H MCHC 36.6 H RDW Std Deviation 40.3 RDW Coeff of [place] 12.2 Plt Count 142 L MPV 10.1 Immature Gran % (Auto) 0.400 Neut % (Auto) 58.1 Lymph % (Auto) 32.5 [place] % (Auto) 8.1 Eos % (Auto) 0.5 Baso % (Auto) 0.4 Absolute Neuts (auto) 3.2 Absolute Lymphs (auto) 1.80 Nucleated RBC % 0 Diff Path Review May foll Sodium 140 Potassium 2.8 L Chloride 107 Carbon Dioxide 21.0 Anion Gap 12 BUN 23 H Creatinine 1.12 Estim Creat Clear Calc 69.67 Est GFR (MDRD) Af Amer 87 Est GFR (MDRD) Non-Af 72 BUN/Creatinine Ratio 20.5 H Glucose 89 Calcium 9.5 Total Bilirubin 1.50 H AST 28 ALT 27 Alkaline Phosphatase 78 Total Protein 7.6 Albumin 4.1 Globulin 3.5 Albumin/Globulin Ratio 1.2 Lipase 169 Discharge Plan Triage Chief Complaint: Abd Pain ED Provider: Robin Stanton Dx/Rx/DC Orders Clinical Impression: COVID-19, Abdominal pain, Hx of CABG Instructions: Human Coronaviruses, Abdominal Pain Prescriptions: New potassium chloride 20 mEq tablet,ER particles/crystals 20 meq PO BID 7 Days Qty: 14 0RF No Action nitroglycerin 0.4 mg tablet, sublingual 0.4 mg SUBLINGUAL Q5-15M PRN (Reason: Nausea) metoprolol tartrate 25 mg tablet 25 mg PO BID levothyroxine 88 mcg tablet 75 mcg PO QDAY hydrochlorothiazide 25 mg tablet 25 mg PO QDAY simvastatin 20 mg tablet 20 mg PO QPM aspirin 81 mg tablet,delayed release (DR/EC) 81 mg PO QDAY amlodipine 5 mg tablet 5 mg PO DAILY simvastatin 20 mg tablet 20 mg PO DAILY Label Comments: TAKE 1 TABLET BY MOUTH ONCE DAILY ondansetron 4 mg tablet,disintegrating 4 mg PO TID PRN (Reason: nausea and vomiting) Qty: 21 0RF Paxlovid (EUA) 300 mg (150 mg x 2)-100 mg tablets,dose pack See Rx Instructions .ROUTE .COMPLEX Qty: 30 0RF Rx Instructions: take TWO 150 mg tablets of nirmatrelvir with ONE 100 mg tablet of ritonavir twice daily for 5 days Primary Care Provider: Becky Crook Referrals: Becky Crook DO [Primary Care Provider] - Activity Restrictions/Additional Instructions: Plenty of fluids and rest. Follow-up with your doctor if not improving. Return if worse. Disposition Disposition: Home, Self Care
[2021-11-18] MEDS: Dicyclomine 10 MG Capsule 20 MG PO (20:49)
[2021-11-18] MEDS: Ondansetron 4 MG/2 ML Vial IV (20:49)
[2021-11-18] MEDS: 0.9% Normal Saline 1,000 ML 1000 ML IV (20:49)
[2021-11-18 20:56] LABS: Absolute Neutrophil Count 3.2 X10^3/uL (2.0-7.7); Basophil# 0.02 X10^3/uL; Basophil% 0.4 % (0-1); Eosinophil# 0.03 X10^3/uL; Eosinophils% 0.5 % (0-5); Hematocrit 51.1 % (40-54); Lymphocyte % 32.5 % (19-41); Mean Corp Hgb Conc 36.6 g/dL (32-36); Mean Corpuscular Volume 90.1 fL (80-94); Mean Platelet Vol. 10.1 fl (6.2-12.0); Monocyte# 0.45 X10^3/uL; Monocyte% 8.1 % (0-10); NRBC Flagged by Analyzer 0 % (0-5); Neutrophil # 3.21 X10^3/uL (2.7-7.7); Neutrophil % 58.1 % (47-70); Platelet Count 142 K/mm3 (150-450); RBC Distribution Width CV 12.2 % (11.6-14.6); RBC Distribution Width SD 40.3 fl (35.1-43.9); Red Blood Count 5.67 M/mm3 (4.6-6.2); White Blood Count 5.5 K/mm3 (4.4-11.0)
[2021-11-18 21:05] LABS: Hemoglobin 18.7 g/dL (13.0-16.5)
[2021-11-18 21:12] LABS: ALB/GLOB Ratio 1.2 RATIO (0.9-2.4); AST(SGOT) 28 U/L (15-37); Alanine Aminotransfer ALT/SGPT 27 U/L (16-61); Albumin, Serum 4.1 g/dL (3.2-5.0); Alkaline Phosphatase 78 U/L (45-117); Anion Gap 12 (5-15); BUN 23 mg/dL (7-18); BUN/Creat Ratio 20.5 RATIO (10-20); Calcium,Total 9.5 mg/dL (8.5-10.1); Chloride 107 mmol/L (98-107); Creatinine, Serum 1.12 mg/dL (0.70-1.30); EST Glomerular Filtration Rate 72 mL/min (>60); Est Glom Filt Rate - Afr Amer 87 mL/min (>60); Estimated Creatinine Clearance 69.67 ml/min; Globulin 3.5 g/dL (2.2-4.2); Glucose 89 mg/dL (74-106); Lipase 169 U/L (73-393); Potassium 2.8 mmol/L (3.5-5.1); Protein, Total 7.6 g/dL (6.4-8.2); Sodium Level 140 mmol/L (136-145)
[2021-11-18 21:55] VITALS: BP 131/74; PULSE 61; RESP 20; O2SAT 98
[2021-11-18 23:48] VITALS: BP 133/78; PULSE 60; RESP 16; O2SAT 98
[2021-11-18] MEDS: Potassium Chloride Oral Tablet 20 MEQ 40 MEQ PO (23:48)
[2021-11-20 15:41] LABS: Pathologist Review Reviewed
== END 2021-11-18 23:49 | disposition home or self-care (01) ==
PROVIDERS: Emergency Provider Emergency Medicine; PCP Internal Medicine; Visit Provider Emergency Medicine
DX: U07.1 COVID-19 (principal); E86.0 Dehydration; I10 Essential (primary) hypertension; I25.10 Atherosclerotic heart disease of native coronary artery without angina pectoris; R10.9 Unspecified abdominal pain; E87.6 Hypokalemia; E78.5 Hyperlipidemia, unspecified; I25.2 Old myocardial infarction; Z95.1 Presence of aortocoronary bypass graft
CPT/HCPCS: 80053; 83690; 85025; 96361; 96374; 99284; J7030; A4216; J2405

== ENCOUNTER 2021-11-19 19:26 | Emergency (ER) | payer BC, SELFPAY ==
[2021-11-19 19:27] VITALS: BP 110/94; PULSE 77; RESP 14; TEMP 36.3; O2SAT 97; BMI 32.1
--- NOTE | 2021-11-19 19:52 | EKG12_ITS ---
Test Reason : ABD PAIN Blood Pressure : / mmHG Vent. Rate : 061 BPM Atrial Rate : 061 BPM P-R Int : 170 ms QRS Dur : 116 ms QT Int : 450 ms P-R-T Axes : 052 057 086 degrees QTc Int : 453 ms Normal sinus rhythm Nonspecific ST and T wave abnormality Abnormal ECG Confirmed by KARTIK VILLELA, DANETTE ([id number]), editor index HOUSTON HERNANDEZ ([id number]) on 11/22/2021 8:58:45 AM Referred By: Confirmed By:DANETTE VERDUGO MD
--- NOTE | 2021-11-19 19:58 | EDS_ITS ---
HPI History of Present Illness Chief Complaint: Abd Pain Informant: patient Onset/Context/Timing Onset: Days (5 days) Current Severity: Moderate Maximum Severity: Moderate Narrative Narrative: Patient presents secondary to epigastric abdominal pain and nausea. He was diagnosed with COVID last . He was started on Paxil bid. He has been seen here in the emergency room now 3 times secondary to abdominal pain and nausea. Yesterday's labs revealed a potassium of 2.8 he was written for potassium replacement. Patient states has not been eating much because he has no appetite. He complains of epigastric abdominal pain and nausea whenever he eats. He does have Zofran at home but did not take it today. PFSH PFSH Medical History Acute coronary syndrome Atherosclerotic heart disease of [place] coronary artery without angina pectoris Essential hypertension Hyperlipidemia Hypertension Hypothyroidism Old myocardial infarction Palpitations Premature ventricular contraction Smoker Home Medications aspirin 81 mg tablet,delayed release 81 mg PO QDAY 07/24/17 [History Last Taken Unknown] hydrochlorothiazide 25 mg tablet 25 mg PO QDAY 07/24/17 [History Last Taken Unknown] levothyroxine 88 mcg tablet 75 mcg PO QDAY 07/24/17 [History Last Taken Unknown] metoprolol tartrate 25 mg tablet 25 mg PO BID 07/24/17 [History Last Taken Unknown] nitroglycerin 0.4 mg sublingual tablet 0.4 mg sublingual Q5-15M PRN Nausea 07/24/17 [History Last Taken Unknown] simvastatin 20 mg tablet 20 mg PO QPM 07/24/17 [History Last Taken Unknown] amlodipine 5 mg tablet 5 mg PO DAILY 11/16/21 [History Last Taken Unknown] nirmatrelvir 300 mg (150 mg x2)-ritonavir 100 mg tablet,dose pack(EUA) (Paxlovid) See Rx Instructions PO .COMPLEX #30 tabs 11/16/21 [Rx Last Taken Unknown] ondansetron 4 mg disintegrating tablet 4 mg PO TID PRN nausea and vomiting #21 tabs 11/16/21 [Rx Last Taken Unknown] simvastatin 20 mg tablet 20 mg PO DAILY 11/16/21 [History Last Taken Unknown] potassium chloride 20 mEq tablet,extended release(part/cryst) 20 meq PO BID 7 days #14 tabs 11/18/21 [Rx Last Taken Unknown] dicyclomine 20 mg tablet 20 mg PO TID PRN abdominal cramping #14 tabs 11/19/21 [Rx Last Taken Unknown] omeprazole 40 mg capsule,delayed release 40 mg PO DAILY #14 caps 11/19/21 [Rx Last Taken Unknown] promethazine 25 mg tablet 25 mg PO TID PRN nausea and vomiting #14 tabs 11/19/21 [Rx Last Taken Unknown] Allergy/AdvReac Type Severity Reaction Status Date / Time No Known Allergies Allergy Unverified 11/10/21 08:34 Family History Mother Diabetes Surgical History Aortocoronary bypass status (~12/2011) Social History Smoking Status: Current some day smoker tobacco type: cigarettes alcohol intake: never substance use type: does not use ROS ROS ED Constitutional Constitutional ED: Denies chills or fever(s) Eyes Eyes: Denies change in vision or discharge from eye(s) ENT ENT ED: Denies discharge from eye(s), rhinorrhea or sore throat Cardiovascular Cardiovascular: Denies chest pain or palpitations Respiratory/Chest Respiratory/Chest: Denies cough or dyspnea Gastrointestinal Gastrointestinal: Reports abdominal pain, nausea and vomiting; Denies diarrhea Genitourinary Genitourinary ED: Denies difficulty urinating or dysuria Musculoskeletal Musculoskeletal: Denies back pain or extremity pain Integumentary Denies Abrasions or rash Neurologic Neurologic: Reports headache(s) and weakness Psychiatric Psychiatric: Denies anxiety or depression Allergic/Immunologic Allergic/Immunologic ED: Denies lip swelling or urticaria EXAM Physical Exam Const Vital Signs: 11/19/21 19:27 11/19/21 21:46 Temperature 97.3 F L Temperature Source Temporal Pulse Rate 77 59 L Respiratory Rate 14 18 Blood Pressure 110/94 H 126/70 H Blood Pressure Mean 99 88 Pulse Ox 97 98 Oxygen Delivery Method Room Air Room Air Positive well nourished and well developed General Appearance ED: well developed HEENT Reports normocephalic and head/scalp atraumatic Eyes PERRL and EOMs intact bilaterally Neck supple Chest Wall inspection of chest normal and palpation of chest normal Resp normal respiratory effort and clear to auscultation bilaterally Cardio regular rate and regular rhythm GI Auscultation: hypoactive bowel sounds Palpation: soft and tender epigastric Extremity normal to inspection Neuro oriented x3 and no sensory deficits noted Sensorium / Orientation: alert Motor Exam: strength 5/5 throughout Psych mental status grossly normal Skin no rashes or lesions noted MDM MDM MDM Narrative Medical decision making narrative: Patient's previous work-ups were reviewed. Lab work, EKG obtained. Patient treated with Bentyl, Protonix, Phenergan. He is given IV fluids. Lab Data Attestation: I reviewed the patient's lab results. Labs: Laboratory Results - last 24 hr 11/19/21 11/19/21 20:20 20:20 WBC 3.9 L RBC 5.38 Hgb 18.2 H* Hct 48.5 MCV 90.1 MCH 33.8 H MCHC 37.5 H RDW Std Deviation 40.2 RDW Coeff of Andrew 12.2 Plt Count 144 L MPV 9.6 Immature Gran % (Auto) 0.300 Neut % (Auto) 50.7 Lymph % (Auto) 37.8 [place] % (Auto) 9.6 Eos % (Auto) 1.3 Baso % (Auto) 0.3 Absolute Neuts (auto) 2.0 Absolute Lymphs (auto) 1.49 Nucleated RBC % 0 Diff Path Review May foll Atypical Lymphocytes 1+ Platelet Estimate ADEQUATE RBC Morphology N CHROM Anisocytosis RARE Macrocytosis RARE Sodium 138 Potassium 2.6 L* Chloride 106 Carbon Dioxide 20.0 L Anion Gap 12 BUN 13 Creatinine 0.84 Estim Creat Clear Calc 91.81 Est GFR (MDRD) Af Amer 121 Est GFR (MDRD) Non-Af 100 BUN/Creatinine Ratio 15.4 Glucose 94 Calcium 9.0 Total Bilirubin 1.30 H Direct Bilirubin 0.37 H AST 26 ALT 26 Alkaline Phosphatase 78 Troponin I High Sens 57 Total Protein 7.2 Albumin 3.8 Globulin 3.4 Lipase 248 EKG Initial EKG: Attestation: I personally reviewed and interpreted this EKG as follows: Interpretation: Sinus Rhythm (Sinus at [address] depression and T wave inversion. This is unchanged when compared to prior study from 2018.) Treatment and Re-Evaluation Narrative: On repeat evaluation patient reports feeling improved. He is ordered 40 mill equivalents of IV potassium replacement. Lab work reveals continued elevated hemoglobin at 18.2. This is slightly improved when compared to the last 2 results. Potassium is lower tonight at 2.6. LFTs are normal. Troponin normal. Lipase normal. Patient will be given prescriptions for Bentyl, Phenergan, Prilosec. He will continue supportive care at home. He was given prescription for potassium last evening and will continue this as well. Discharge Plan Triage Chief Complaint: Abd Pain ED Provider: Alanna Jonas Dx/Rx/DC Orders Clinical Impression: COVID-19, Abdominal pain, epigastric, Hypokalemia, Nausea Instructions: Coronavirus Disease 2019 (COVID-19): Caring for Yourself or Others, ED Hypokalemia, ED Epigastric Pain Uncertain Cause Prescriptions: New promethazine 25 mg tablet 25 mg PO TID PRN (Reason: nausea and vomiting) Qty: 14 0RF omeprazole 40 mg capsule,delayed release(DR/EC) 40 mg PO DAILY Qty: 14 0RF dicyclomine 20 mg tablet 20 mg PO TID PRN (Reason: abdominal cramping) Qty: 14 0RF No Action nitroglycerin 0.4 mg tablet, sublingual 0.4 mg SUBLINGUAL Q5-15M PRN (Reason: Nausea) metoprolol tartrate 25 mg tablet 25 mg PO BID levothyroxine 88 mcg tablet 75 mcg PO QDAY hydrochlorothiazide 25 mg tablet 25 mg PO QDAY simvastatin 20 mg tablet 20 mg PO QPM aspirin 81 mg tablet,delayed release (DR/EC) 81 mg PO QDAY amlodipine 5 mg tablet 5 mg PO DAILY simvastatin 20 mg tablet 20 mg PO DAILY Label Comments: TAKE 1 TABLET BY MOUTH ONCE DAILY ondansetron 4 mg tablet,disintegrating 4 mg PO TID PRN (Reason: nausea and vomiting) Qty: 21 0RF Paxlovid (EUA) 300 mg (150 mg x 2)-100 mg tablets,dose pack See Rx Instructions .ROUTE .COMPLEX Qty: 30 0RF Rx Instructions: take TWO 150 mg tablets of nirmatrelvir with ONE 100 mg tablet of ritonavir twice daily for 5 days potassium chloride 20 mEq tablet,ER particles/crystals 20 meq PO BID 7 Days Qty: 14 0RF Primary Care Provider: Becky Crook Referrals: Becky Crook DO [Primary Care Provider] - 1 Week Disposition Disposition: Home, Self Care
[2021-11-19] MEDS: proMETHazine 25 MG/ML Syringe 12.5 MG IM (20:16)
[2021-11-19] MEDS: Dicyclomine 20 MG/2 ML Vial IM (20:16)
[2021-11-19 20:31] LABS: Absolute Lymphocyte Count 1.49 X10^3/uL (0.83-4.51); Basophil# 0.01 X10^3/uL; Basophil% 0.3 % (0-1); Eosinophil# 0.05 X10^3/uL; Eosinophils% 1.3 % (0-5); Hematocrit 48.5 % (40-54); Lymphocyte # 1.49 X10^3/ul (0.83-4.51); Lymphocyte % 37.8 % (19-41); Mean Corp Hgb Conc 37.5 g/dL (32-36); Mean Corpuscular Hgb 33.8 pg (27.0-32.0); Mean Corpuscular Volume 90.1 fL (80-94); Mean Platelet Vol. 9.6 fl (6.2-12.0); Monocyte# 0.38 X10^3/uL; Monocyte% 9.6 % (0-10); NRBC Flagged by Analyzer 0 % (0-5); Neutrophil % 50.7 % (47-70); POSITIVE MORPHOLOGY YES; Platelet Count 144 K/mm3 (150-450); RBC Distribution Width CV 12.2 % (11.6-14.6); RBC Distribution Width SD 40.2 fl (35.1-43.9); Red Blood Count 5.38 M/mm3 (4.6-6.2); White Blood Count 3.9 K/mm3 (4.4-11.0)
[2021-11-19 20:37] LABS: Differential Indicated SCAN CRITERIA MET; Hemoglobin 18.2 g/dL (13.0-16.5)
[2021-11-19] MEDS: 0.9% Normal Saline 1,000 ML 999 ML IV (20:46)
[2021-11-19 20:53] LABS: AST(SGOT) 26 U/L (15-37); Alanine Aminotransfer ALT/SGPT 26 U/L (16-61); Albumin, Serum 3.8 g/dL (3.2-5.0); Alkaline Phosphatase 78 U/L (45-117); Anion Gap 12 (5-15); BUN 13 mg/dL (7-18); BUN/Creat Ratio 15.4 RATIO (10-20); Bilirubin, Direct 0.37 mg/dL (0.00-0.30); Chloride 106 mmol/L (98-107); Creatinine, Serum 0.84 mg/dL (0.70-1.30); EST Glomerular Filtration Rate 100 mL/min (>60); Est Glom Filt Rate - Afr Amer 121 mL/min (>60); Estimated Creatinine Clearance 91.81 ml/min; Globulin 3.4 g/dL (2.2-4.2); Glucose 94 mg/dL (74-106); Lipase 248 U/L (73-393); Potassium 2.6 mmol/L (3.5-5.1); Protein, Total 7.2 g/dL (6.4-8.2); Sodium Level 138 mmol/L (136-145); Troponin-I HS 57 pg/mL (3.0-78.0)
[2021-11-19 21:02] LABS: Anisocytosis RARE; Atypical Lymphocyte 1+ %; Macrocytosis RARE; Platelet Estimate ADEQUATE (ADEQ); Red Cell Morphology N CHROM NORMAL (NORM C&C)
[2021-11-19] MEDS: Potassium Chloride 10mEq/100mL 10 MEQ/100 ML IV.SOLN. 100 MEQ IV BOLUS ×3 (21:13→23:27)
[2021-11-19 21:46] VITALS: BP 126/70; PULSE 59; RESP 18; O2SAT 98
[2021-11-19 23:28] VITALS: BP 125/78; PULSE 66; RESP 18; O2SAT 97
[2021-11-20] MEDS: Potassium Chloride 10mEq/100mL 10 MEQ/100 ML IV.SOLN. 100 MEQ IV BOLUS (00:32)
[2021-11-20 01:16] VITALS: BP 123/74; PULSE 63; RESP 16; O2SAT 98
[2021-11-20 01:45] VITALS: BP 126/70; PULSE 71; RESP 16; O2SAT 98
[2021-11-21 09:09] LABS: Pathologist Review Reviewed
== END 2021-11-20 01:45 | disposition home or self-care (01) ==
PROVIDERS: Emergency Provider Emergency Medicine; PCP Internal Medicine; Visit Provider Emergency Medicine
DX: U07.1 COVID-19 (principal); E87.6 Hypokalemia; E78.5 Hyperlipidemia, unspecified; I25.10 Atherosclerotic heart disease of native coronary artery without angina pectoris; I10 Essential (primary) hypertension; R10.13 Epigastric pain; R11.0 Nausea; I25.2 Old myocardial infarction; Z79.82 Long term (current) use of aspirin; Z95.1 Presence of aortocoronary bypass graft; F17.210 Nicotine dependence, cigarettes, uncomplicated
CPT/HCPCS: 80048; 80076; 83690; 84484; 85025; 93005; 96361; 96365; 96372; 99285; J7030; J7040; A4216

== ENCOUNTER → 2022-04-18 | Outpatient (CLI) | payer BC, SELFPAY ==
[2022-04-18 14:03] LABS: Absolute Lymphocyte Count 3.18 X10^3/uL (0.83-4.51); Absolute Neutrophil Count 3.6 X10^3/uL (2.0-7.7); Basophil# 0.04 X10^3/uL; Basophil% 0.5 % (0-1); Eosinophil# 0.19 X10^3/uL; Eosinophils% 2.5 % (0-5); Hematocrit 49.6 % (40-54); Hemoglobin 17.3 g/dL (13.0-16.5); Lymphocyte # 3.18 X10^3/ul (0.83-4.51); Lymphocyte % 41.8 % (19-41); Mean Corp Hgb Conc 34.9 g/dL (32-36); Mean Corpuscular Hgb 32.8 pg (27.0-32.0); Mean Corpuscular Volume 94.1 fL (80-94); Mean Platelet Vol. 9.3 fl (6.2-12.0); Monocyte# 0.64 X10^3/uL; Monocyte% 8.4 % (0-10); NRBC Flagged by Analyzer 0 % (0-5); Neutrophil # 3.55 X10^3/uL (2.7-7.7); Neutrophil % 46.7 % (47-70); Platelet Count 202 K/mm3 (150-450); RBC Distribution Width CV 12.1 % (11.6-14.6); RBC Distribution Width SD 42.1 fl (35.1-43.9); Red Blood Count 5.27 M/mm3 (4.6-6.2); White Blood Count 7.6 K/mm3 (4.4-11.0)
[2022-04-18 14:20] LABS: ALB/GLOB Ratio 1.1 RATIO (0.9-2.4); AST(SGOT) 17 U/L (15-37); Alanine Aminotransfer ALT/SGPT 24 U/L (16-61); Albumin, Serum 3.9 g/dL (3.2-5.0); Alkaline Phosphatase 87 U/L (45-117); Anion Gap 7 (5-15); BUN 14 mg/dL (7-18); BUN/Creat Ratio 15.3 RATIO (10-20); CPK Total, Creatine Kinase 54 U/L (39-308); Calcium,Total 9.6 mg/dL (8.5-10.1); Chloride 105 mmol/L (98-107); Creatinine, Serum 0.91 mg/dL (0.70-1.30); EST Glomerular Filtration Rate 91 mL/min (>60); Est Glom Filt Rate - Afr Amer 110 mL/min (>60); Globulin 3.6 g/dL (2.2-4.2); Glucose 93 mg/dL (74-106); Protein, Total 7.5 g/dL (6.4-8.2); Sodium Level 140 mmol/L (136-145); Troponin-I HS 44 pg/mL (3.0-78.0)
== END | disposition home or self-care (01) ==
PROVIDERS: PCP Internal Medicine; Visit Provider Internal Medicine
DX: R07.89 Other chest pain (principal)
CPT/HCPCS: 80053; 82550; 84484; 85025

== ENCOUNTER → 2022-04-26 | Outpatient (CLI) | payer BC, SELFPAY ==
[2022-04-26 13:07] LABS: Potassium 3.8 mmol/L (3.5-5.1)
== END | disposition home or self-care (01) ==
LOC: LABSPEC 12:54
PROVIDERS: PCP Internal Medicine; Visit Provider Internal Medicine
DX: E87.6 Hypokalemia (principal)
CPT/HCPCS: 84132

== ENCOUNTER 2023-04-09 05:15 | Emergency (ER) | payer BC, MEDICAID, SELFPAY ==
[2023-04-09 05:15] VITALS: BP 175/109; PULSE 99; RESP 18; TEMP 36.6; O2SAT 98
--- NOTE | 2023-04-09 05:38 | EX.ED.DYSGE1 ---
HPI History of Present Illness Chief Complaint: General Illness Narrative Narrative: 57-year-old male past medical history of hypertension, hypothyroidism, hyperlipidemia presents with upper respiratory infection type symptoms and feeling rundown like he has COVID-19 again. He has been ill for the last week. He has a very occasional cough and sometimes feels short of breath. He may have felt feverish in the past as well. He presents to the emergency department wanting to know if he has COVID. Had loose stool as well. PFSH PFSH Medical History Acute coronary syndrome Atherosclerotic heart disease of [place] coronary artery without angina pectoris Essential hypertension Hyperlipidemia Hypertension Hypothyroidism Old myocardial infarction Palpitations Premature ventricular contraction Smoker Home Medications aspirin 81 mg tablet,delayed release 81 mg PO QDAY 07/24/17 [History Last Taken Unknown] hydrochlorothiazide 25 mg tablet 25 mg PO QDAY 07/24/17 [History Last Taken Unknown] levothyroxine 88 mcg tablet 75 mcg PO QDAY 07/24/17 [History Last Taken Unknown] metoprolol tartrate 25 mg tablet 25 mg PO BID 07/24/17 [History Last Taken Unknown] nitroglycerin 0.4 mg sublingual tablet 0.4 mg sublingual Q5-15M PRN Nausea 07/24/17 [History Last Taken Unknown] amlodipine 5 mg tablet 5 mg PO DAILY 11/16/21 [History Last Taken Unknown] ondansetron 4 mg disintegrating tablet 4 mg PO TID PRN nausea and vomiting #21 tabs 11/16/21 [Rx Last Taken Unknown] simvastatin 20 mg tablet 20 mg PO DAILY 11/16/21 [History Last Taken Unknown] potassium chloride 20 mEq tablet,extended release(part/cryst) 20 meq PO BID 7 days #14 tabs 11/18/21 [Rx Last Taken Unknown] Allergy/AdvReac Type Severity Reaction Status Date / Time No Known Allergies Allergy Verified 04/09/23 05:18 Family History Mother Diabetes Surgical History Aortocoronary bypass status (~12/2011) Social History Smoking Status: Light Smoker (<10/day) alcohol intake: never substance use type: does not use ROS ROS ED ROS Narrative Constitutional: Subjective fever, no chills. Fatigue, feeling rundown. HEENT: No sore throat. No neck pain. No loss of vision. No rhinorrhea. Cardiovascular: No chest pain. No palpitations. No pedal edema. Respiratory: Occasional cough, shortness of breath on occasion as well. Abdominal: No abdominal pain. No nausea. No vomiting. Loose stool. Genitourinary: No dysuria. No hematuria. Musculoskeletal: No myalgias. No arthralgias. Neurologic: No headaches. No dizziness. No lightheadedness. Skin: No rash. No change in color. Psychiatric: No depression. No anxiety. EXAM Physical Exam Narrative Exam Narrative: Afebrile. Vital signs noted. HEENT: Normocephalic. Atraumatic. PERRL, EOMI. Neck soft and supple. No point tenderness or step off. Cardiovascular: Regular rate and rhythm. No murmurs, rubs, or gallops appreciated. Respiratory: No tachypnea. Lungs clear to auscultation bilaterally. Gastrointestinal: Abdomen soft, nontender, with normoactive bowel sounds. No rebound or guarding. Neurological: Awake. Alert. Nonfocal, nonlateralizing. Skin: No rash. Normal color. No pallor. Musculoskeletal: No pedal edema. Full range of motion extremities. Const Vital Signs: 04/09/23 05:15 04/09/23 05:40 04/09/23 06:53 Temperature 97.9 F Temperature Source Oral Pulse Rate 99 74 Respiratory Rate 18 16 Respiratory Effort Normal Respiratory Pattern Normal Blood Pressure 175/109 H 153/83 H Blood Pressure Mean 131 106 Pulse Ox 98 96 Oxygen Delivery Method Room Air [facility] [place] [facility] [place] Narrative Medical decision making narrative: Differential is bronchitis versus viral syndrome. I do not feel laboratory work is indicated. Not tachycardic. He is afebrile here. He is not clinically dehydrated. I will obtain a chest x-ray in 1 view. He was swabbed for COVID, influenza, and RSV. EKG was obtained and interpreted by myself independently as normal sinus rhythm at 70 bpm without ectopy or acute ST changes. No STEMI. Chest x-ray in 1 view interpreted by myself shows no pneumothorax, no evidence of pneumonia. I do not feel antibiotics are indicated. I reviewed his respiratory swabs which are negative. Does not have COVID, influenza, or RSV. At this point in time, while I am unsure as to his rundown feeling, he relates history that he has anxiety about a lot of his health conditions. He was reassured that he does not have COVID, so he will follow-up with his primary care provider as needed. I do not feel he requires admission at this time. Return instructions to the emergency department were reviewed. Disposition is discharged home in stable condition. History & Record Review Discussion w/independent historian: Patient Additional record(s) reviewed:: Prior ED visit Radiography Diagnostic Testing: Clinical Impression(s) from Imaging Studies Chest X-Ray 04/09/23 05:45 IMPRESSION: Broken median sternotomy wire. Chest otherwise with no acute disease. Electronically Signed: Dajuan Morocho MD at 6:01 EST , Discharge Plan Triage Chief Complaint: General Illness ED Provider: Justin Jain Dx/Rx/DC Orders Clinical Impression: Malaise, SOB (shortness of breath), Palpitations Instructions: ED Dyspnea, ED Palpitations Prescriptions: No Action nitroglycerin 0.4 mg tablet, sublingual 0.4 mg SUBLINGUAL Q5-15M PRN (Reason: Nausea) metoprolol tartrate 25 mg tablet 25 mg PO BID levothyroxine 88 mcg tablet 75 mcg PO QDAY hydrochlorothiazide 25 mg tablet 25 mg PO QDAY aspirin 81 mg tablet,delayed release (DR/EC) 81 mg PO QDAY amlodipine 5 mg tablet 5 mg PO DAILY simvastatin 20 mg tablet 20 mg PO DAILY Patient Comments: TAKE 1 TABLET BY MOUTH ONCE DAILY ondansetron 4 mg tablet,disintegrating 4 mg PO TID PRN (Reason: nausea and vomiting) Qty: 21 0RF potassium chloride 20 mEq tablet,ER particles/crystals 20 meq PO BID 7 Days Qty: 14 0RF Primary Care Provider: Becky Crook Referrals: Becky Crook, [Primary Care Provider] - As soon as possible Disposition Disposition: Home, Self Care
--- NOTE | 2023-04-09 05:45 | RAD_ITS ---
INDICATION: Shortness of breath EXAMINATION/TECHNIQUE: X-RAY - XR Chest 1 View COMPARISON: None. Findings: Single frontal view of the chest. LUNG PARENCHYMA: No acute focal airspace disease or mass lesion. PLEURA: Eventration of the right hemidiaphragm. No pleural effusion. No pneumothorax. HEART/GREAT VESSELS: Cardiomediastinal silhouette is unremarkable. BONES: Median sternotomy wires, inferior most wire is broken. RAD/Chest 1 View (Portable) IMPRESSION: Broken median sternotomy wire. Chest otherwise with no acute disease. Electronically Signed: Dajuan Morocho MD at 6:01 EST ,
--- NOTE | 2023-04-09 06:36 | EKG12_ITS ---
Test Reason : REPEAT Blood Pressure : / mmHG Vent. Rate : 070 BPM Atrial Rate : 070 BPM P-R Int : 170 ms QRS Dur : 108 ms QT Int : 418 ms P-R-T Axes : 062 069 082 degrees QTc Int : 451 ms Normal sinus rhythm Nonspecific ST abnormality Abnormal ECG Confirmed by JOSE VILLELA, WARD ([id number]), publishing editor CHRISTINA TAMAYO ([id number]) on 04/10/2023 9:06:55 AM Referred By: Confirmed By:WARD GARCIA MD
[2023-04-09 06:53] VITALS: BP 153/83; PULSE 74; RESP 16; O2SAT 96
== END 2023-04-09 07:04 | disposition home or self-care (01) ==
PROVIDERS: Emergency Provider Emergency Medicine; PCP Internal Medicine; Visit Provider Emergency Medicine
DX: R53.81 Other malaise (principal); R06.02 Shortness of breath; R00.2 Palpitations; I10 Essential (primary) hypertension; E78.5 Hyperlipidemia, unspecified; F17.200 Nicotine dependence, unspecified, uncomplicated; I25.10 Atherosclerotic heart disease of native coronary artery without angina pectoris; I25.2 Old myocardial infarction; Z79.899 Other long term (current) drug therapy; Z79.82 Long term (current) use of aspirin; E03.9 Hypothyroidism, unspecified
CPT/HCPCS: 71045; 87631; 93005; 99283

== ENCOUNTER → 2023-04-10 | Outpatient (CLI) | payer BC, SELFPAY ==
[2023-04-10 14:12] LABS: Potassium 2.9 mmol/L (3.5-5.1)
== END | disposition home or self-care (01) ==
LOC: LABSPEC 13:30
PROVIDERS: PCP Internal Medicine; Referring Provider Internal Medicine; Visit Provider Internal Medicine
DX: E87.6 Hypokalemia (principal)
CPT/HCPCS: 84132

== ENCOUNTER → 2023-04-19 | Outpatient (CLI) | payer BC, MEDICAID, SELFPAY ==
[2023-04-19 12:59] LABS: CPK Total, Creatine Kinase 47 U/L (39-308); Potassium 3.6 mmol/L (3.5-5.1); Troponin-I HS 41 pg/mL (3.0-78.0)
[2023-04-22 15:07] LABS: Creatine Kinase BB 0 % (0); Creatine Kinase MB 0 % (0-3); Creatine Kinase MM 100 % (97-100); Creatine Kinase,Total,Serum 45 U/L (41-331); Macro I 0 % (Not Observed); Macro II 0 % (Not Observed)
== END | disposition home or self-care (01) ==
PROVIDERS: PCP Internal Medicine; Referring Provider Internal Medicine; Visit Provider Internal Medicine
DX: R07.89 Other chest pain (principal); E87.6 Hypokalemia
CPT/HCPCS: 82550; 82552; 84132; 84484

== ENCOUNTER 2023-09-04 15:49 | Emergency (ER) | payer BC, SELFPAY ==
[2023-09-04] VITALS (7 sets, daily range): BP systolic 129–150; BP diastolic 54–93; PULSE 75–105; RESP 16–24; TEMP 36.3–36.6; O2SAT 94–98; BMI 31.9
--- NOTE | 2023-09-04 16:06 | EDS_ITS ---
HPI History of Present Illness Chief Complaint: Chest Pain Narrative Narrative: 57-year-old male past medical history of hypertension, previous NM with bypass surgery in 2011, presents with chest pain and PVCs. He also has history of anxiety to a certain degree. He relates history that 12 years ago, he was having PVCs, and ended up having to have coronary artery bypass surgery. Recently, he hurt his back, and is going to chiropractor who told him that with adjustments, he may start feeling chest pain in the front and across his chest from the adjustments. He states that at times when he gets anxiety, he will feel a PVC coming on. He saw his primary care provider today, who ordered outpatient lab test, but while he was at home, he started having pain and possibly PVCs again. He is concerned about his heart. He denies other symptoms. No exacerbating or alleviating factors. [facility] Medical History (Updated 09/04/23 @ 18:55 by Justin Jain MD) Anxiety Smoker Essential hypertension Acute coronary syndrome Old myocardial infarction Hypothyroidism Hyperlipidemia Palpitations Hypertension Atherosclerotic heart disease of [place] coronary artery without angina pectoris Premature ventricular contraction Home Medications ?Medication ?Instructions ?Recorded ?Last Taken ?Type hydrochlorothiazide 25 mg tablet 25 mg PO QDAY 07/24/17 09/04/23 History metoprolol tartrate 25 mg tablet 25 mg PO BID 07/24/17 09/04/23 History amlodipine 5 mg tablet 5 mg PO DAILY 11/16/21 Unknown History simvastatin 20 mg tablet 20 mg PO DAILY 11/16/21 09/04/23 History aspirin 325 mg capsule 325 mg PO DAILY 09/04/23 09/04/23 History citalopram 20 mg tablet 20 mg PO DAILY 09/04/23 09/04/23 History levothyroxine 50 mcg tablet 50 mcg PO DAILY 09/04/23 09/04/23 History potassium chloride 20 mEq 20 meq PO BID 09/04/23 09/04/23 History tablet,extended release Allergy/AdvReac Type Severity Reaction Status Date / Time No Known Allergies Allergy Verified 09/04/23 15:51 Family History Mother Diabetes Surgical History Aortocoronary bypass status (~12/2011) Social History Smoking Status: Light Smoker (<10/day) alcohol intake: never substance use type: does not use ROS ROS ED ROS Narrative Constitutional: No fever, no chills. HEENT: No sore throat. No neck pain. No loss of vision. No rhinorrhea. Cardiovascular: Positive chest pain. Positive PVCs/palpitations. No pedal edema. Respiratory: No cough, no shortness of breath. Abdominal: No abdominal pain. No nausea. No vomiting. Genitourinary: No dysuria. No hematuria. Musculoskeletal: No myalgias. No arthralgias. Neurologic: No headaches. No dizziness. No lightheadedness. Skin: No rash. No change in color. Psychiatric: No depression. Mild anxiety. EXAM Physical Exam Narrative Exam Narrative: Afebrile. Vital signs noted. HEENT: Normocephalic. Atraumatic. PERRL, EOMI. Neck soft and supple. No point tenderness or step off. Cardiovascular: Regular rate and rhythm. No murmurs, rubs, or gallops appreciated. Respiratory: No tachypnea. Lungs clear to auscultation bilaterally. Gastrointestinal: Abdomen soft, nontender, with normoactive bowel sounds. No rebound or guarding. Neurological: Awake. Alert. Nonfocal, nonlateralizing. Skin: No rash. Normal color. No pallor. Musculoskeletal: No pedal edema. Full range of motion extremities. Psychiatric: Mild anxiety Const Vital Signs: 09/04/23 15:49 09/04/23 15:50 09/04/23 16:05 Temperature 97.4 F L Temperature Source Temporal Pulse Rate 98 Respiratory Rate 16 Respiratory Effort Normal Non-Labored Respiratory Pattern Normal Blood Pressure 146/87 H Blood Pressure Mean 106 Pulse Ox 96 97 Oxygen Delivery Method Room Air Room Air 09/04/23 16:49 09/04/23 17:00 09/04/23 18:00 Temperature Temperature Source Pulse Rate 75 105 H 83 Respiratory Rate 18 16 18 Respiratory Effort Respiratory Pattern Blood Pressure 140/73 H 129/54 H 148/93 H Blood Pressure Mean 95 79 111 Pulse Ox 94 95 98 Oxygen Delivery Method Room Air Heart Score History: Slightly/Non-Suspicious ECG: Normal Age: >45 - <65 years Risk Factors: >/= 3 Risk Factors or History of CAD Score: 3 MDM MDM MDM Narrative Medical decision making narrative: In the differential diagnosis is ACS versus PE versus PVCs versus anxiety. In discussion with the patient, I do feel there is a strong anxiety component to his chest pain. I think that ruling him out with cardiac enzymes would be more reassuring to him. EKG was obtained and interpreted by myself independently as normal sinus rhythm at 96 bpm without ectopy or acute ST changes. No STEMI. I reviewed his laboratory work and he has normal white count of 6.9, hemoglobin normal at 16.3, hematocrit 47.2, platelet count normal at 180. D-dimer is slightly elevated at 1.04, in review of his electrolyte panel potassium is low at 3.1 which was replaced orally with 40 mill equivalents, chloride slightly elevated at 109 which I think is nonspecific, glucose of 108 with normal anion gap of 6. Chest x-ray in 1 view interpreted by myself independently shows no evidence of pneumonia or pneumothorax. I reviewed the radiology report which confirms my independent interpretation. His initial high-sensitivity troponin is 45 with delta of -2 as his second has gone down to 43. I feel he has been ruled out with serial biomarkers for acute coronary syndrome. As he has an elevated D-dimer, CTA was obtained which shows no evidence of a pulmonary embolism or aortic dissection. At this point in time, I feel he can be discharged safely home with follow-up to his primary care provider. I did recommend that he follow-up with a call center agent as well. Return instructions to the emergency department were reviewed. Disposition is discharged home in stable condition. History & Record Review Discussion w/independent historian: Patient Lab Data Attestation: I reviewed the patient's lab results. Labs: Laboratory Results - last 24 hr 09/04/23 09/04/23 16:08 18:15 WBC 6.9 RBC 5.02 Hgb 16.3 Hct 47.2 MCV 94.0 MCH 32.5 H MCHC 34.5 RDW Std Deviation 40.3 RDW Coeff of Andrew 11.7 Plt Count 180 MPV 9.4 Immature Gran % (Auto) 0.100 Neut % (Auto) 37.8 L Lymph % (Auto) 46.4 H [place] % (Auto) 12.9 H Eos % (Auto) 2.2 Baso % (Auto) 0.6 Absolute Neuts (auto) 2.6 Absolute Lymphs (auto) 3.21 Nucleated RBC % 0 D-Dimer Quant (PE/DVT) 1.04 H* Sodium 139 Potassium 3.1 L Chloride 109 H Carbon Dioxide 24.0 Anion Gap 6 BUN 18 Creatinine 0.99 Estim Creat Clear Calc 89.28 Est GFR (MDRD) Af Amer 100 Est GFR (MDRD) Non-Af 83 BUN/Creatinine Ratio 18.2 Glucose 108 H Calcium 9.4 Troponin I High Sens 45 43 Radiography Chest X-Ray - ED: 1 View and Read by ED Physician Diagnostic Testing: Clinical Impression(s) from Imaging Studies Chest X-Ray 09/04/23 16:20 IMPRESSION: No radiographic evidence of acute cardiopulmonary disease. Electronically Signed: Babar Jaquez DO at 16:49 EDT , Chest CTA 09/04/23 16:45 IMPRESSION: No demonstrated pulmonary embolism or arterial dissection. Electronically Signed: Babar Jaquez DO at 17:46 EDT , Discharge Plan Triage Chief Complaint: Chest Pain ED Provider: Justin Jain Dx/Rx/DC Orders Clinical Impression: Chest pain, Hypokalemia, Elevated d-dimer Instructions: ED Chest Pain, Noncardiac, ED Chest Pain, Uncertain Cause, ED Hyp okalemia Prescriptions: No Action metoprolol tartrate 25 mg tablet 25 mg PO BID hydrochlorothiazide 25 mg tablet 25 mg PO QDAY amlodipine 5 mg tablet 5 mg PO DAILY simvastatin 20 mg tablet 20 mg PO DAILY Patient Comments: TAKE 1 TABLET BY MOUTH ONCE DAILY citalopram 20 mg tablet 20 mg PO DAILY levothyroxine 50 mcg tablet 50 mcg PO DAILY Rx Instructions: except skip sundays potassium chloride 20 mEq tablet extended release 20 meq PO BID aspirin 325 mg capsule 325 mg PO DAILY Primary Care Provider: Becky Crook Referrals: Becky Crook DO [Primary Care Provider] - 3-5 Days if not improving Print Language: Persian Disposition Disposition: Home, Self Care
[2023-09-04] MEDS: 0.9% Normal Saline (1000mL) 1,000 ML 999 ML IV (16:10)
--- NOTE | 2023-09-04 16:20 | RAD_ITS ---
INDICATION: chest pain EXAMINATION/TECHNIQUE: X-RAY - XR Chest 1 View COMPARISON: April 09, 2023 FINDINGS: LINES/DEVICES: Stable sternotomy wires. LUNGS: No consolidation, edema or effusion. No pneumothorax. MEDIASTINUM AND CARDIOVASCULAR STRUCTURES: Cardiac silhouette not enlarged. Central airways and mediastinal contour are unremarkable. BONES AND SOFT TISSUES: Unremarkable. RAD/Chest 1 View (Portable) IMPRESSION: No radiographic evidence of acute cardiopulmonary disease. Electronically Signed: Babar Jaquez DO at 16:49 EDT ,
[2023-09-04 16:23] LABS: Absolute Lymphocyte Count 3.21 X10^3/uL (0.83-4.51); Absolute Neutrophil Count 2.6 X10^3/uL (2.0-7.7); Basophil# 0.04 X10^3/uL; Basophil% 0.6 % (0-1); Eosinophil# 0.15 X10^3/uL; Eosinophils% 2.2 % (0-5); Hematocrit 47.2 % (40-54); Hemoglobin 16.3 g/dL (13.0-16.5); Lymphocyte # 3.21 X10^3/ul (0.83-4.51); Lymphocyte % 46.4 % (19-41); Mean Corp Hgb Conc 34.5 g/dL (32-36); Mean Corpuscular Hgb 32.5 pg (27.0-32.0); Mean Platelet Vol. 9.4 fl (6.2-12.0); Monocyte# 0.89 X10^3/uL; Monocyte% 12.9 % (0-10); NRBC Flagged by Analyzer 0 % (0-5); Neutrophil # 2.62 X10^3/uL (2.7-7.7); Neutrophil % 37.8 % (47-70); Platelet Count 180 K/mm3 (150-450); RBC Distribution Width CV 11.7 % (11.6-14.6); RBC Distribution Width SD 40.3 fl (35.1-43.9); Red Blood Count 5.02 M/mm3 (4.6-6.2); White Blood Count 6.9 K/mm3 (4.4-11.0)
[2023-09-04 16:34] LABS: Anion Gap 6 (5-15); BUN 18 mg/dL (7-18); BUN/Creat Ratio 18.2 RATIO (10-20); Calcium,Total 9.4 mg/dL (8.5-10.1); Chloride 109 mmol/L (98-107); Creatinine, Serum 0.99 mg/dL (0.70-1.30); EST Glomerular Filtration Rate 83 mL/min (>60); Est Glom Filt Rate - Afr Amer 100 mL/min (>60); Estimated Creatinine Clearance 89.28 ml/min; Glucose 108 mg/dL (74-106); Potassium 3.1 mmol/L (3.5-5.1); Sodium Level 139 mmol/L (136-145); Troponin-I HS (w/2H Reflex) 45 pg/mL (3.0-78.0)
[2023-09-04 16:44] LABS: D-Dimer Quantitative (DVT/PE) 1.04 FEU/ug/m (0.27-0.49)
--- NOTE | 2023-09-04 16:45 | CT_ITS ---
STUDY: CTA CHEST REASON FOR EXAM: Male, 57 years old. Elevated D dimer RADIATION DOSAGE (If Supplied By Facility): CTDIvol = ( 11.06 ) mGy, DLP = ( 555.02 ) mGycm TECHNIQUE: The examination was performed with the intravenous administration of IV 100mL Isovue-370. Post-processing of the angiographic images was performed, with multiplanar reformation and 3D reconstruction. The protocol utilizes one or more of the following dose reduction techniques: automated exposure control, adjustment of mA and/or kV according to patient size,and/or use of iterative reconstruction technique. COMPARISON: FINDINGS: Normal enhancement of the main pulmonary artery and right and left pulmonary arteries. Normal enhancement of the bilateral peripheral pulmonary arteries. There is no demonstrated pulmonary embolism. Normal thoracic aorta and visualized great vessels. There is no demonstrated aortic dissection. Normal heart and pericardium. Normal mediastinum. Normal hilar regions. Normal visualized trachea and bronchi. The lungs are well expanded. Normal pulmonary parenchyma. Normal pleura. Normal chest wall structures. Normal osseous structures. 1.6 cm hypoattenuated hepatic nodule. Nonobstructing right renal calculus. 1.6 cm right adrenal nodule. CT/CTA Chest W/WO Contrast IMPRESSION: No demonstrated pulmonary embolism or arterial dissection. Electronically Signed: Babar Jaquez DO at 17:46 EDT ,
[2023-09-04] MEDS: Potassium Chloride Oral Tablet 20 MEQ 40 MEQ PO (16:51)
[2023-09-04 18:13] LABS: Reflex Troponin-HS? (from REC) Y
[2023-09-04 18:48] LABS: Troponin-I HS 43 pg/mL (3.0-78.0)
== END 2023-09-04 19:12 | disposition home or self-care (01) ==
PROVIDERS: Emergency Provider Emergency Medicine; PCP Internal Medicine; Visit Provider Emergency Medicine
DX: R07.9 Chest pain, unspecified (principal); F17.200 Nicotine dependence, unspecified, uncomplicated; I49.3 Ventricular premature depolarization; E87.6 Hypokalemia; I10 Essential (primary) hypertension; F41.9 Anxiety disorder, unspecified; R79.89 Other specified abnormal findings of blood chemistry; I25.2 Old myocardial infarction; E78.5 Hyperlipidemia, unspecified; I25.10 Atherosclerotic heart disease of native coronary artery without angina pectoris; E03.9 Hypothyroidism, unspecified
CPT/HCPCS: 71045; 71275; 80048; 84484; 85025; 85379; 93005; 96360; 96361; 99284; J7030; Q9967; A4216

== ENCOUNTER 2023-09-23 23:40 | Emergency (ER) | payer BC, SELFPAY ==
[2023-09-23 23:41] VITALS: BP 166/97; PULSE 89; RESP 16; TEMP 36.1; O2SAT 97; BMI 31.1
--- NOTE | 2023-09-24 00:19 | ED.VIS.DENTA ---
HPI History of Present Illness Chief Complaint: Other, Pain/Inj Detail of Chief Complaint: Right submandibular gland swelling and discomfort. Informant: patient Onset/Context/Timing Onset: Yesterday Context: Gradual Onset Timing: Continuous Current Severity: Mild Maximum Severity: Mild Associated Symptoms Assocated Symptom - Dental: Negative for fever, jaw swelling, face swelling, cold sensitivity or hot sensitivity Narrative Narrative: 57-year-old male history of prior CABG history of right submandibular gland stone. He has seen ENT for this years ago they discussed having his gland taken out he did not want that done at the time. He did have a stone removed 1 time. States the last 2 days he has had right submandibular swelling again. Denies fever or chills. Prior similar symptoms: Yes Recent Illness/Hospitalization: No PFSH PFS Medical History Anxiety Smoker Essential hypertension Acute coronary syndrome Old myocardial infarction Hypothyroidism Hyperlipidemia Palpitations Hypertension Atherosclerotic heart disease of [place] coronary artery without angina pectoris Premature ventricular contraction Home Medications ?Medication ?Instructions ?Recorded ?Last Taken ?Type hydrochlorothiazide 25 mg tablet 25 mg PO QDAY 07/24/17 09/04/23 History metoprolol tartrate 25 mg tablet 25 mg PO BID 07/24/17 09/04/23 History amlodipine 5 mg tablet 5 mg PO DAILY 11/16/21 Unknown History simvastatin 20 mg tablet 20 mg PO DAILY 11/16/21 09/04/23 History aspirin 325 mg capsule 325 mg PO DAILY 09/04/23 09/04/23 History citalopram 20 mg tablet 20 mg PO DAILY 09/04/23 09/04/23 History levothyroxine 50 mcg tablet 50 mcg PO DAILY 09/04/23 09/04/23 History potassium chloride 20 mEq 20 meq PO BID 09/04/23 09/04/23 History tablet,extended release amoxicillin 875 mg-potassium 1 tab PO BID 7 days #14 tabs 09/24/23 Unknown Rx clavulanate 125 mg tablet Allergy/AdvReac Type Severity Reaction Status Date / Time No Known Allergies Allergy Verified 09/23/23 23:41 Family History Mother Diabetes Surgical History Aortocoronary bypass status (~12/2011) Social History Smoking Status: Light Smoker (<10/day) alcohol intake: never substance use type: does not use ROS ROS ED ROS Narrative Denies recent illness. Review of Systems ROS Unobtainable: Denies due to encephalopathy Constitutional Constitutional ED: Denies chills or fever(s) Eyes Eyes: Denies blurry vision ENT ENT ED: Denies ear pain Respiratory/Chest Respiratory/Chest: Denies cough or dyspnea Gastrointestinal Gastrointestinal: Denies abdominal pain Genitourinary Genitourinary ED: Denies dysuria Musculoskeletal Musculoskeletal: Denies arthralgias, back pain or myalgias Integumentary Denies abscess or Abrasions Neurologic Neurologic: Denies headache(s) Psychiatric Psychiatric: Reports anxiety; Denies depression Endocrine Endocrinology: Denies cold intolerance Hematologic/Lymphatic Hematologic/Lymphatic: Denies easy bleeding, easy bruising or lymphadenopathy Allergic/Immunologic Allergic/Immunologic ED: Denies mouth swelling, tongue swelling or urticaria EXAM Physical Exam Narrative Exam Narrative: Well-appearing 57-year-old male. Vital signs stable afebrile. H EENT exam moist mucous membranes. Multiple missing teeth. No trouble swallowing or breathing. No inflammation in his mouth. No abnormality of his right submandibular duct. Neck he has swelling of his right submandibular gland. It is firm. There is no fluctuance. There is no lymphadenopathy. He has normal range of motion of his neck. This is consistent with a blocked submandibular gland. Lungs clear. Heart regular rhythm. Abdomen soft. Moving all 4 extremities. Awake and alert Const Vital Signs: 09/23/23 23:41 09/23/23 23:45 Temperature 97 F L Temperature Source Temporal Pulse Rate 89 Respiratory Rate 16 Respiratory Effort Normal Short of Breath Respiratory Pattern Normal Blood Pressure 166/97 H Blood Pressure Mean 120 Pulse Ox 97 Positive well nourished and well developed; Negative for cachectic, contractures or unkempt General Appearance ED: well developed and NAD; Negative for unkempt, cachectic or contractures Nutritional Appearance: Negative for cachectic HEENT HEENT Narrative: Tender right submandibular gland. Swollen. No fluctuance. Multiple missing teeth. Inside his mouth is unremarkable. Negative for trauma or tenderness Face and Sinus: Negative for sinuses nontender Mouth ED: Yes oral and palatal mucosa normal and Yes salivary gland abnormal Mouth: oral and palatal mucosa normal and salivary gland abnormal occluded Throat: posterior oropharynx normal Eyes PERRL and EOMs intact bilaterally General Eye ED: Negative for pale conjunctiva or scleral icterus Neck no lymphadenopathy and no JVD Neck Narrative: Swollen right submandibular gland. No fluctuance. Chest Wall inspection of chest normal and palpation of chest normal Resp normal respiratory effort Cardio regular rate, regular rhythm, S1 normal heart sound, S2 normal heart sound and no murmurs GI normal to inspection, nondistended, normoactive bowel sounds, non-tender, non-distended and no masses Back/Spine no CVA tenderness Extremity normal to inspection and no joint enlargement General Extremety ED: Negative for edema General Extremity: Negative for edema Neuro oriented x3, CN's II-XII intact bilaterally and no focal motor deficits Sensorium / Orientation: alert, oriented to person, oriented to place and oriented to time; Negative for orientation impaired Motor Exam: strength 5/5 throughout Psych Appearance: Negative for unkempt Attitude: No agitated Mood & Affect: Negative for depressed or tearful Skin no rashes or lesions noted and no wounds MDM MDM MDM Narrative Medical decision making narrative: 37-year-old male with prior history of a submandibular stone and blockage. He has seen ENT for this in the past. Exam is consistent with that tonight. Will be started on Augmentin 875 twice daily for 7 days. Given a dose here and prescription sent home. Hard candy to cause salivation. Follow-up with Dr. Brendan Steele of ENT. Return if worse. History & Record Review Discussion w/independent historian: Patient Discharge Plan Triage Chief Complaint: Other, Pain/Inj ED Provider: Robin Stanton Dx/Rx/DC Orders Clinical Impression: Submandibular gland inflammation, Hx of coronary artery bypass graft Instructions: ED Salivary Gland Stones Prescriptions: New amoxicillin-pot clavulanate 875-125 mg tablet 1 tab PO BID 7 Days Qty: 14 0RF No Action metoprolol tartrate 25 mg tablet 25 mg PO BID hydrochlorothiazide 25 mg tablet 25 mg PO QDAY amlodipine 5 mg tablet 5 mg PO DAILY simvastatin 20 mg tablet 20 mg PO DAILY Patient Comments: TAKE 1 TABLET BY MOUTH ONCE DAILY citalopram 20 mg tablet 20 mg PO DAILY levothyroxine 50 mcg tablet 50 mcg PO DAILY Rx Instructions: except skip sundays potassium chloride 20 mEq tablet extended release 20 meq PO BID aspirin 325 mg capsule 325 mg PO DAILY Primary Care Provider: Becky Crook Referrals: Becky Crook DO [Primary Care Provider] - Brendan Ignacio MD [Med Staff - Active Staff] - As soon as possible Activity Restrictions/Additional Instructions: Hard candy 3-5 times a day to cause a lot of salivation. Tylenol for pain. The antibiotic Augmentin 1 pill twice a day for 1 week. Till gone. Follow-up with the ENT doctor Dr. Brendan Ignacio to ensure you are improving. Print Language: Swedish Disposition Disposition: Home, Self Care
--- NOTE | 2023-09-24 07:22 | ED.RN ---
see downtime documentation
== END 2023-09-24 00:40 | disposition home or self-care (01) ==
PROVIDERS: Emergency Provider Emergency Medicine; PCP Internal Medicine; Visit Provider Emergency Medicine
DX: I88.9 Nonspecific lymphadenitis, unspecified (principal); F17.200 Nicotine dependence, unspecified, uncomplicated; Z95.1 Presence of aortocoronary bypass graft; I25.10 Atherosclerotic heart disease of native coronary artery without angina pectoris; I10 Essential (primary) hypertension; I25.2 Old myocardial infarction; E78.5 Hyperlipidemia, unspecified; E03.9 Hypothyroidism, unspecified
CPT/HCPCS: 99282

== ENCOUNTER 2023-11-29 22:58 | Emergency (ER) | payer BC, MEDICAID, SELFPAY ==
[2023-11-29 22:59] VITALS: BP 161/92; PULSE 81; RESP 16; TEMP 36.2; O2SAT 97; BMI 30.4
--- NOTE | 2023-11-30 | EDS_ITS ---
HPI History of Present Illness Chief Complaint: Lower Extremity Injury Informant: patient Narrative Narrative: Nontraumatic right low back pain radiating to his groin and anterior thigh region intermittent over the past day. States shocking sensations. No loss of bowel bladder control. History of similar in the past seen chiropractor with adjustments that would help. Last seen 2 months ago. He is nondiabetic. Hypertension hyperlipidemia thyroidism. History of CABG 2011. Denies history of gastric ulcers or kidney injury. Prior similar symptoms: Yes PFSH PFSH Medical History Anxiety Smoker Essential hypertension Acute coronary syndrome Old myocardial infarction Hypothyroidism Hyperlipidemia Palpitations Hypertension Atherosclerotic heart disease of [place] coronary artery without angina pectoris Premature ventricular contraction Home Medications ?Medication ?Instructions ?Recorded ?Last Taken ?Type hydrochlorothiazide 25 mg tablet 25 mg PO QDAY 07/24/17 09/04/23 History metoprolol tartrate 25 mg tablet 25 mg PO BID 07/24/17 09/04/23 History amlodipine 5 mg tablet 5 mg PO DAILY 11/16/21 Unknown History simvastatin 20 mg tablet 20 mg PO DAILY 11/16/21 09/04/23 History aspirin 325 mg capsule 325 mg PO DAILY 09/04/23 09/04/23 History citalopram 20 mg tablet 20 mg PO DAILY 09/04/23 09/04/23 History levothyroxine 50 mcg tablet 50 mcg PO DAILY 09/04/23 09/04/23 History potassium chloride 20 mEq 20 meq PO BID 09/04/23 09/04/23 History tablet,extended release amoxicillin 875 mg-potassium 1 tab PO BID 7 days #14 tabs 09/24/23 Unknown Rx clavulanate 125 mg tablet ibuprofen 600 mg tablet 600 mg PO Q6H PRN PRN pain #20 11/29/23 Unknown Rx TABLETS prednisone 20 mg tablet 60 mg (3 x 20 mg) PO DAILY #12 11/29/23 Unknown Rx TABLETS Allergy/AdvReac Type Severity Reaction Status Date / Time No Known Allergies Allergy Verified 09/23/23 23:41 Family History Mother Diabetes Surgical History Aortocoronary bypass status (~12/2011) Social History household members: family Smoking Status: Light Smoker (<10/day) alcohol intake: never substance use type: does not use ROS ROS ED Constitutional Constitutional ED: Denies chills, fever(s) or sweats Eyes Eyes: Denies change in vision ENT ENT ED: Denies dysphagia or sore throat Cardiovascular Cardiovascular: Denies chest pain, leg edema, palpitations or racing heartbeat Respiratory/Chest Respiratory/Chest: Denies cough, dyspnea or dyspnea on exertion Gastrointestinal Gastrointestinal: Denies abdominal pain, diarrhea, nausea or vomiting Genitourinary Genitourinary ED: Denies dysuria, hematuria or urinary frequency Musculoskeletal Musculoskeletal: Reports back pain and extremity pain; Denies neck pain Integumentary Denies rash or wounds Neurologic Neurologic: Denies headache(s), paresthesias or weakness EXAM Physical Exam Const Vital Signs: 11/29/23 22:59 Temperature 97.2 F L Temperature Source Temporal Pulse Rate 81 Respiratory Rate 16 Blood Pressure 161/92 H Blood Pressure Mean 115 Pulse Ox 97 Oxygen Delivery Method Room Air Positive well nourished and well developed General Appearance ED: well developed and NAD HEENT Reports moist mucous membranes normocephalic and atraumatic Eyes EOMs intact bilaterally and conjunctivae normal General Eye ED: Yes normal appearance of both eyes Neck no lymphadenopathy and supple General: Negative for tenderness Chest Wall Chest: Negative for tenderness Resp normal respiratory effort and normal air movement Effort and Inspection: symmetric chest movement; Negative for respiratory distress Cardio regular rate, regular rhythm and no murmurs Peripheral Pulses: pulses 2+ throughout GI normal to inspection, nondistended, normoactive bowel sounds and non-tender Palpation: Negative for guarding or rebound tenderness present Back/Spine no CVA tenderness and no thoracic nor lumbar tenderness Back/Spine Narrative: Straight leg test negative. 1+ patellar reflex bilaterally. Extremity normal to inspection General Extremety ED: Negative for edema or tenderness General Extremity: Negative for edema Neuro oriented x3 and no sensory deficits noted Sensorium / Orientation: awake and alert Skin no rashes or lesions noted and no wounds MDM MDM MDM Narrative Medical decision making narrative: Interventions / MDM: Differential diagnosis: Lumbar radiculopathy, sciatica Diagnosis considered but do not suspect: No cauda equina symptoms My EKG interpretation: N/A Imaging independently reviewed and interpreted by myself: N/A External documents reviewed: N/A Test considered but not ordered:N/A ED course: Patient intermittent symptoms radiating across his groin and inner thigh. This is in the pattern of L3 nerve. Discussed lumbar radiculopathy symptoms with the patient. Currently pain located in the back region. No trauma. No loss of bowel or bladder control concerns for cauda equina symptoms. I do not feel image studies are necessary at this time. Discussed conservative treatment at this time he started on ibuprofen and prednisone. Follow-up with his PCP and chiropractor as an outpatient. All questions were answered. Re-evaluation: stable Disposition discussed with patient/family/significant other: Patient Case discussed with consulting clinician: N/A This note was generated with [employer] software. It may contain incorrect words, spelling, and punctuation that were not noted in checking the note before signing. Discharge Plan Triage Chief Complaint: Lower Extremity Injury ED Provider: Yaya Omalley Dx/Rx/DC Orders Clinical Impression: Lumbosacral radiculopathy at L3, Back pain Instructions: ED Sciatica Prescriptions: New prednisone 20 mg tablet 60 mg PO DAILY Qty: 12 0RF ibuprofen 600 mg tablet 600 mg PO Q6H PRN PRN (Reason: pain) Qty: 20 0RF No Action metoprolol tartrate 25 mg tablet 25 mg PO BID hydrochlorothiazide 25 mg tablet 25 mg PO QDAY amlodipine 5 mg tablet 5 mg PO DAILY simvastatin 20 mg tablet 20 mg PO DAILY Patient Comments: TAKE 1 TABLET BY MOUTH ONCE DAILY citalopram 20 mg tablet 20 mg PO DAILY levothyroxine 50 mcg tablet 50 mcg PO DAILY Rx Instructions: except skip sundays potassium chloride 20 mEq tablet extended release 20 meq PO BID aspirin 325 mg capsule 325 mg PO DAILY amoxicillin-pot clavulanate 875-125 mg tablet 1 tab PO BID 7 Days Qty: 14 0RF Primary Care Provider: Becky Crook Referrals: Becky Crook DO [Primary Care Provider] - 1 Week Activity Restrictions/Additional Instructions: Symptoms consistent with right L3 radicular symptoms. Take medication as prescribed. Follow-up your PCP. Also may follow-up with your chiropractor for adjustments to see if it would help.. Print Language: Turkish Disposition Disposition: Home, Self Care
[2023-11-30] MEDS: Ibuprofen 600 MG Tablet PO (00:08)
[2023-11-30] MEDS: predniSONE 20 MG Tablet 60 MG PO (00:08)
[2023-11-30 00:18] VITALS: BP 159/74; PULSE 77; RESP 18; TEMP 36.2; O2SAT 97
== END 2023-11-30 00:19 | disposition home or self-care (01) ==
PROVIDERS: Emergency Provider Emergency Medicine; PCP Internal Medicine; Visit Provider Emergency Medicine
DX: M54.17 Radiculopathy, lumbosacral region (principal); F17.200 Nicotine dependence, unspecified, uncomplicated; E78.5 Hyperlipidemia, unspecified; I25.10 Atherosclerotic heart disease of native coronary artery without angina pectoris; I10 Essential (primary) hypertension; Z95.1 Presence of aortocoronary bypass graft; Z79.899 Other long term (current) drug therapy; I25.2 Old myocardial infarction; Z79.890 Hormone replacement therapy; F41.9 Anxiety disorder, unspecified
CPT/HCPCS: 99283

== ENCOUNTER 2024-02-17 09:38 | Emergency (ER) | payer BC, SELFPAY ==
[2024-02-17 09:39] VITALS: BP 151/89; PULSE 83; RESP 14; TEMP 36.8; O2SAT 99; BMI 31.8
--- NOTE | 2024-02-17 09:50 | CT_ITS ---
STUDY: CT ABDOMEN AND PELVIS WITH CONTRAST REASON FOR EXAM: Male, 58 years old. Painless gross hematuria on no anticoagulant RADIATION DOSAGE (If Supplied By Facility): CTDIvol = ( 14.58 ) mGy, DLP = ( 1038.37 ) mGycm TECHNIQUE: IV 100mL Isovue-300 was administered. Transaxial images were obtained from the dome of the diaphragm to the symphysis pubis. Multiplanar coronal and sagittal images were reformatted. The protocol utilizes one or more of the following dose reduction techniques: automated exposure control, adjustment of mA and/or kV according to patient size,and/or use of iterative reconstruction technique. COMPARISON: No relevant prior comparison study available FINDINGS: The visualized lung bases are unremarkable. The visualized portions of the heart are within normal limits. Mild hepatic steatosis. 1.5 cm low-density lesion likely cyst in the left lobe of the liver. Normal gallbladder and extrahepatic biliary system. Normal spleen. Normal pancreas. Normal bilateral adrenal glands. Multiple small bilateral renal cysts appears to be simple, the largest is in the right kidney measuring about 2.3 cm. Few nonobstructing stones in the right kidney, the largest measures about 4 mm in the upper pole of right kidney. 2 mm stone in the ureteropelvic junction. No evidence of hydronephrosis. Normal visualized stomach. Normal in caliber small bowel loops. Calcific density in distal ileal loop likely due to undissolved pill. Mild diverticulosis without evidence of acute diverticulitis. Thickening of the colon likely due to underdistention. The appendix is visualized and appears normal. There is atherosclerotic calcification of the abdominal aorta, without a demonstrated aneurysm. No retroperitoneal adenopathy. Normal urinary bladder. Slightly prominent prostate. Very small umbilical hernia containing fat. Degenerative changes of the spine. CT/Abdomen/Pelvis W IV Cont ONLY IMPRESSION: 1. Small nonobstructing stone in the right ureteropelvic junction without evidence of hydronephrosis. 2. Small nonobstructing stones in the right kidney. 3. Liver and bilateral renal cysts appears to be simple and no further follow-up exam is needed. 4. Slightly prominent prostate. 5. Mild diverticulosis without evidence of acute diverticulitis. Electronically Signed: Germán Sauer MD at 11:07 EST ,
--- NOTE | 2024-02-17 10:00 | EDS_ITS ---
HPI History of Present Illness Chief Complaint: Complaint Detail of Chief Complaint: Painless gross hematuria Informant: patient Onset/Context/Timing Onset: Today (99) Context: Sudden Onset Timing: Continuous (Presumed) Quality: Bloody urine Location: Current Severity: Uncertain Maximum Severity: Uncertain Worsened by: Nothing Relieved by: Nothing Associated Symptoms Associated Symptoms: Absolutely no symptoms Narrative Narrative: Patient is a 58-year-old male. He has no known documented history of renal ureterolithiasis. Patient presents because of gross hematuria. He used the restroom at 0100 noted dark-colored urine was concerned it was bloody. The next time he urinated he urinated a bottle and stated it was bloody. There is no clots. He is on no anticoagulant. He is on a baby aspirin daily. He denies fever, chills night sweats. He denies dysuria, urgency or frequency. He denies scrotal pain or swelling. There is no history of trauma. He denies lower abdominal pain or lower central back pain. There is no history of bruising easily. There is no history of weight gain or weight loss. In the past he had a UA which revealed microscopic hematuria. Prior similar symptoms: Yes Recent Illness/Hospitalization: No PFSH PFSH Medical History Anxiety Smoker Essential hypertension Acute coronary syndrome Old myocardial infarction Hypothyroidism Hyperlipidemia Palpitations Hypertension Atherosclerotic heart disease of nondalton coronary artery without angina pectoris Premature ventricular contraction Home Medications ?Medication ?Instructions ?Recorded ?Last Taken ?Type hydrochlorothiazide 25 mg tablet 25 mg PO QDAY 07/24/17 09/04/23 History metoprolol tartrate 25 mg tablet 25 mg PO BID 07/24/17 09/04/23 History amlodipine 5 mg tablet 5 mg PO DAILY 11/16/21 Unknown History simvastatin 20 mg tablet 20 mg PO DAILY 11/16/21 09/04/23 History aspirin 325 mg capsule 325 mg PO DAILY 09/04/23 09/04/23 History citalopram 20 mg tablet 20 mg PO DAILY 09/04/23 09/04/23 History levothyroxine 50 mcg tablet 50 mcg PO DAILY 09/04/23 09/04/23 History potassium chloride 20 mEq 20 meq PO BID 09/04/23 09/04/23 History tablet,extended release amoxicillin 875 mg-potassium 1 tab PO BID 7 days #14 tabs 09/24/23 Unknown Rx clavulanate 125 mg tablet ibuprofen 600 mg tablet 600 mg PO Q6H PRN PRN pain #20 11/29/23 Unknown Rx TABLETS prednisone 20 mg tablet 60 mg (3 x 20 mg) PO DAILY #12 11/29/23 Unknown Rx TABLETS Allergy/AdvReac Type Severity Reaction Status Date / Time No Known Allergies Allergy Verified 02/17/24 09:39 Family History Mother Diabetes Surgical History Aortocoronary bypass status (~12/2011) Social History household members: family Smoking Status: Light Smoker (<10/day) alcohol intake: never substance use type: does not use ROS ROS ED Constitutional Constitutional ED: Denies chills, fever(s), subjective, sweats or weight loss Cardiovascular Cardiovascular: Denies palpitations Respiratory/Chest Respiratory/Chest: Denies dyspnea or dyspnea on exertion Gastrointestinal Gastrointestinal: Denies abdominal pain, nausea or vomiting Genitourinary Genitourinary ED: Reports hematuria; Denies dysuria or urinary frequency Musculoskeletal Musculoskeletal: Reports back pain and other Details: Left lower back pain that patient feels is musculoskeletal. Integumentary Reports rash Neurologic Neurologic: Denies weakness Hematologic/Lymphatic Hematologic/Lymphatic: Reports systems reviewed and no addt'l complaints, except as documented EXAM Physical Exam Const Vital Signs: 02/17/24 09:39 Temperature 98.2 F Temperature Source Temporal Pulse Rate 83 Respiratory Rate 14 Blood Pressure 151/89 H Blood Pressure Mean 109 Pulse Ox 99 Oxygen Delivery Method Room Air Positive well nourished and well developed Constitutional Narrative: BMI is 31.8. General Appearance ED: well developed and NAD; Negative for cyanotic, diaphoretic or pallor HEENT Reports moist mucous membranes HEENT Narrative: Head is atraumatic normocephalic. Eyes PERRL and EOMs intact bilaterally General Eye ED: Negative for pale conjunctiva or scleral icterus Neck no JVD Resp normal respiratory effort and clear to auscultation bilaterally Cardio regular rate, regular rhythm, S1 normal heart sound, S2 normal heart sound and no murmurs GI normal to inspection, nondistended, normoactive bowel sounds, non-tender, non- distended and no masses; Negative for hepatosplenomegaly Narrative: There is no inguinal lymphadenopathy. Extremity normal to inspection Neuro oriented x3 and CN's II-XII intact bilaterally Sensorium / Orientation: alert Psych mental status grossly normal Skin no rashes or lesions noted, no wounds and skin turgor normal General Skin Exam: Negative for jaundice or pallor MDM MDM MDM Narrative Medical decision making narrative: Patient with reported gross hematuria. Will obtain UA to determine the amount of blood and even though he has no symptoms rule out infection. Patient is a smoker of less than 1 pack/day. He denies alcohol use. Need to evaluate for renal/bladder pathology i.e. tumor/cancer. CBC was obtained assess H&H as well as white count. BMP to assess renal function and determine if CAT scan can be performed. Patient will need referral to urology pending results of laboratory tests and imaging. History & Record Review Additional record(s) reviewed:: Prior outpatient record ( for cardiac issues.), Prior ED visit (November 29 for back pain. August 2023 for cardiac presentation as well as September 03April for malaise.) and Prior labs Lab Data Attestation: I reviewed the patient's lab results. Lab results narrative: CBC is unremarkable. Hemoglobin is elevated from baseline, 17.5. Electrolyte panel is unremarkable. Urine is lauren in color and turbid. Macro was positive for protein, blood, nitrites and leukoesterase. There is also urobilinogen. Microscopic is remarkable for greater than 100 RBCs with 0-5 WBCs and 1+ urate crystals. There is no bacteria noted. Labs: Laboratory Results - last 24 hr 02/17/24 09:58 WBC 5.9 RBC 5.24 Hgb 17.5 H Hct 51.0 MCV 97.3 H MCH 33.4 H MCHC 34.3 RDW Std Deviation 47.8 H RDW Coeff of Andrew 13.3 Plt Count 184 MPV 9.0 Immature Gran % (Auto) 0.300 Neut % (Auto) 49.4 Lymph % (Auto) 37.5 [place] % (Auto) 9.2 Eos % (Auto) 3.1 Baso % (Auto) 0.5 Absolute Neuts (auto) 2.9 Absolute Lymphs (auto) 2.21 Nucleated RBC % 0 Sodium 139 Potassium 3.8 Chloride 112 H Carbon Dioxide 26.0 Anion Gap 1 L BUN 11 Creatinine 1.16 Estim Creat Clear Calc 75.11 Est GFR (MDRD) Af Amer 83 Est GFR (MDRD) Non-Af 69 BUN/Creatinine Ratio 9.5 L Glucose 107 H Calcium 9.3 Urine Color Lauren Urine Clarity Turbid Urine pH 6.0 Ur Specific [place] 1.020 Urine Protein 100 H Urine Glucose (UA) Normal Urine Ketones Negative Urine Occult Blood 250 H Urine Nitrite Positive H Urine Bilirubin Negative Urine Urobilinogen 1 H Ur Leukocyte Esterase 25 H Urine RBC > 100 SEEN Urine WBC 0-5 SEEN Ur Squamous Epith Cells 0 SEEN Amorphous Sediment 1+ URATE Urine Bacteria 0 SEEN RBC Casts 0 SEEN Urine Mucus 1+ Radiography Diagnostic Testing: Clinical Impression(s) from Imaging Studies Abdomen/Pelvis CT 02/17/24 09:50 IMPRESSION: 1. Small nonobstructing stone in the right ureteropelvic junction without evidence of hydronephrosis. 2. Small nonobstructing stones in the right kidney. 3. Liver and bilateral renal cysts appears to be simple and no further follow-up exam is needed. 4. Slightly prominent prostate. 5. Mild diverticulosis without evidence of acute diverticulitis. Electronically Signed: Germán Sauer MD at 11:07 EST , CT of the abdomen reveals a stone pelvis of right kidney and there is a small stone noted proximal left ureter with no evidence of hydro nephrosis. Radiology report was read. Will have patient follow-up with Dr. Alanis for evaluation of painless gross hematuria. Discharge Plan Triage Chief Complaint: Complaint ED Provider: Jaswinder Koch Dx/Rx/DC Orders Clinical Impression: Gross hematuria, Hyperlipidemia, Kidney stone on right side, Calculus of proximal right ureter, Elevated blood pressure reading with diagnosis of hypertension, BPH (benign prostatic hyperplasia) Instructions: ED BPH (Enlarged Prostate), ED Hematuria, ED Kidney Stone No Sx Prescriptions: No Action metoprolol tartrate 25 mg tablet 25 mg PO BID hydrochlorothiazide 25 mg tablet 25 mg PO QDAY amlodipine 5 mg tablet 5 mg PO DAILY simvastatin 20 mg tablet 20 mg PO DAILY Patient Comments: TAKE 1 TABLET BY MOUTH ONCE DAILY citalopram 20 mg tablet 20 mg PO DAILY levothyroxine 50 mcg tablet 50 mcg PO DAILY Rx Instructions: except skip sundays potassium chloride 20 mEq tablet extended release 20 meq PO BID aspirin 325 mg capsule 325 mg PO DAILY prednisone 20 mg tablet 60 mg PO DAILY Qty: 12 0RF ibuprofen 600 mg tablet 600 mg PO Q6H PRN PRN (Reason: pain) Qty: 20 0RF amoxicillin-pot clavulanate 875-125 mg tablet 1 tab PO BID 7 Days Qty: 14 0RF Primary Care Provider: Becky Crook Referrals: Kamran Alanis MD [Med Staff - Active Staff] - 1 Week Becky Crook DO [Primary Care Provider] - Print Language: Egyptian Disposition Disposition: Home, Self Care
[2024-02-17 10:06] LABS: Bacteria 0 SEEN /hpf (None Seen); Squamous Epithelial Cells - UA 0 SEEN /hpf (0-5)
[2024-02-17 10:12] LABS: Absolute Lymphocyte Count 2.21 X10^3/uL (0.83-4.51); Absolute Neutrophil Count 2.9 X10^3/uL (2.0-7.7); Basophil# 0.03 X10^3/uL; Basophil% 0.5 % (0-1); Eosinophil# 0.18 X10^3/uL; Eosinophils% 3.1 % (0-5); Hemoglobin 17.5 g/dL (13.0-16.5); Lymphocyte # 2.21 X10^3/ul (0.83-4.51); Lymphocyte % 37.5 % (19-41); Mean Corp Hgb Conc 34.3 g/dL (32-36); Mean Corpuscular Hgb 33.4 pg (27.0-32.0); Mean Corpuscular Volume 97.3 fL (80-94); Monocyte# 0.54 X10^3/uL; Monocyte% 9.2 % (0-10); NRBC Flagged by Analyzer 0 % (0-5); Neutrophil # 2.91 X10^3/uL (2.7-7.7); Neutrophil % 49.4 % (47-70); Platelet Count 184 K/mm3 (150-450); RBC Distribution Width CV 13.3 % (11.6-14.6); RBC Distribution Width SD 47.8 fl (35.1-43.9); Red Blood Count 5.24 M/mm3 (4.6-6.2); White Blood Count 5.9 K/mm3 (4.4-11.0)
[2024-02-17 10:14] LABS: Color, Urine Amber (Yellow); Glucose, Dipstick Normal (Normal); Ketone-Dipstick Negative (Negative); Leukocyte Esterase-Dipstick 25 /ul (Negative); Nitrite-Dipstick Positive (Negative); Occult Blood-Urine 250 /ul (Negative); Protein-Dipstick 100 mg/dl (Negative); Urine Bilirubin Dipstick Negative (Negative); Urine Clarity Turbid (Clear); Urine Urobilinogen 1 mg/dl (Normal)
[2024-02-17 10:21] LABS: White Blood Cells 0-5 SEEN /hpf (0-5)
[2024-02-17 10:22] LABS: Amorphous Sediment 1+ URATE; Mucous, Urine 1+ /hpf (<or=2+); Red Blood Cells-Urine > 100 SEEN /hpf (0-5); Red Cell Cast 0 SEEN /lpf (None Seen)
[2024-02-17 10:35] LABS: Anion Gap 1 (5-15); BUN 11 mg/dL (7-18); BUN/Creat Ratio 9.5 RATIO (10-20); Calcium,Total 9.3 mg/dL (8.5-10.1); Chloride 112 mmol/L (98-107); Creatinine, Serum 1.16 mg/dL (0.70-1.30); EST Glomerular Filtration Rate 69 mL/min (>60); Est Glom Filt Rate - Afr Amer 83 mL/min (>60); Estimated Creatinine Clearance 75.11 ml/min; Glucose 107 mg/dL (74-106); Potassium 3.8 mmol/L (3.5-5.1); Sodium Level 139 mmol/L (136-145)
[2024-02-17 11:35] VITALS: BP 130/74; PULSE 82; RESP 15; TEMP 36.4; O2SAT 97
== END 2024-02-17 11:36 | disposition home or self-care (01) ==
PROVIDERS: Emergency Provider Emergency Medicine; PCP Internal Medicine; Visit Provider Emergency Medicine
DX: R31.0 Gross hematuria (principal); N20.2 Calculus of kidney with calculus of ureter; Z79.82 Long term (current) use of aspirin; F17.210 Nicotine dependence, cigarettes, uncomplicated; R53.81 Other malaise; E78.5 Hyperlipidemia, unspecified; I25.10 Atherosclerotic heart disease of native coronary artery without angina pectoris; N40.0 Benign prostatic hyperplasia without lower urinary tract symptoms; R03.0 Elevated blood-pressure reading, without diagnosis of hypertension; Z95.1 Presence of aortocoronary bypass graft; I25.2 Old myocardial infarction; E03.9 Hypothyroidism, unspecified
CPT/HCPCS: 74177; 80048; 81001; 85025; 99283; Q9967; A4216

== ENCOUNTER 2024-03-08 12:38 | Emergency (ER) | payer BC, SELFPAY ==
[2024-03-08 12:39] VITALS: BP 162/102; PULSE 78; RESP 18; TEMP 35.6; O2SAT 98
[2024-03-08 12:42] VITALS: BMI 32.4
--- NOTE | 2024-03-08 13:30 | CT_ITS ---
STUDY: CT Abdomen And Pelvis W/O Contrast Injection 03/08/2024 2:57 PM REASON FOR EXAM: Male, 58 years old. Abdominal pain Pain Individualized dose optimization techniques were used for this CT. COMPARISON: 02/17/2024 TECHNIQUE: CT Abdomen And Pelvis W/O Contrast Injection FINDINGS: There are atherosclerotic calcifications of visualized coronary arteries. The visualized portions of the heart are within normal limits. Median sternotomy wires. Stable hypodensity in the left lobe of the liver. Normal gallbladder and extrahepatic biliary system. Normal spleen. Normal pancreas. Normal bilateral adrenal glands. There are hypodensities in the right kidney. These are consistent for cysts. No follow up required. There are hypodensities in the left kidney. These are consistent for cysts. No follow up required. Non obstructive 2 mm right renal parenchymal stones. Also, there are bilateral hyperdense lesions in both kidneys. Initial evaluation with ultrasound can be obtained. These may be hemorrhagic cyst. Normal visualized stomach. Normal small intestine. Stool throughout the colon. The appendix is visualized and appears normal. There are calcifications of the abdominal aorta. This is consistent for atherosclerotic disease. There is NO abdominal aortic aneurysm. Vascular workup can be obtained based on clinical correlation. Normal inferior vena cava. Subcentimeter mesenteric lymph nodes. Normal urinary bladder. There are prostatic calcifications. There is an umbilical hernia containing fat. Moderate hydronephrosis caused by two 4 mm distal right ureteral stones. Normal osseous structures. There is bilateral neural foraminal stenosis at L4-5 and L5-S1. CT/Abdomen/Pelvis without Cont IMPRESSION: (NOT LISTED IN ORDER OF SIGNIFICANCE) Moderate hydronephrosis caused by two 4 mm distal right ureteral stones. Also, there are bilateral hyperdense lesions in both kidneys. Initial evaluation with ultrasound can be obtained. These may be hemorrhagic cyst. Other findings as above. Electronically Signed: Rad Mccollum MD at 15:01 EST ,
--- NOTE | 2024-03-08 13:34 | EX.ED.DYSGE1 ---
HPI <JANELL Nieto - Last Filed: 03/08/24 16:05> History of Present Illness Chief Complaint: Flank Pain Narrative Narrative: 58-year-old male with history of ACS, hypothyroidism hyperlipidemia hypertension who presents to the emergency department a right-sided flank pain. Patient was seen here February 17, 2024, patient was here for hematuria that was painless. Full workup at that time was completed. CT scan did show some nonobstructing right-sided kidney stones. Over the last 48 hours, the patient had much more pain to the right flank he now has severe pain to the right flank that rates to the right lower abdomen. Denies any fever or chills however does have some nausea and vomiting. Here for evaluation. PFS <JANELL Nieto - Last Filed: 03/08/24 16:05> [facility] Medical History Anxiety Smoker Essential hypertension Acute coronary syndrome Old myocardial infarction Hypothyroidism Hyperlipidemia Palpitations Hypertension Atherosclerotic heart disease of [place] coronary artery without angina pectoris Premature ventricular contraction Home Medications ?Medication ?Instructions ?Recorded ?Last Taken ?Type hydrochlorothiazide 25 mg tablet 25 mg PO QDAY 07/24/17 09/04/23 History metoprolol tartrate 25 mg tablet 25 mg PO BID 07/24/17 09/04/23 History amlodipine 5 mg tablet 5 mg PO DAILY 11/16/21 Unknown History simvastatin 20 mg tablet 20 mg PO DAILY 11/16/21 09/04/23 History aspirin 325 mg capsule 325 mg PO DAILY 09/04/23 09/04/23 History citalopram 20 mg tablet 20 mg PO DAILY 09/04/23 09/04/23 History levothyroxine 50 mcg tablet 50 mcg PO DAILY 09/04/23 09/04/23 History potassium chloride 20 mEq 20 meq PO BID 09/04/23 09/04/23 History tablet,extended release amoxicillin 875 mg-potassium 1 tab PO BID 7 days #14 tabs 09/24/23 Unknown Rx clavulanate 125 mg tablet ibuprofen 600 mg tablet 600 mg PO Q6H PRN PRN pain #20 11/29/23 Unknown Rx TABLETS prednisone 20 mg tablet 60 mg (3 x 20 mg) PO DAILY #12 11/29/23 Unknown Rx TABLETS oxycodone-acetaminophen 5 mg-325 1 tab PO Q8H PRN pain 3 days #10 03/08/24 Unknown Rx mg tablet (Percocet) tabs tamsulosin 0.4 mg capsule (Flomax) 0.4 mg PO DAILY #10 caps 03/08/24 Unknown Rx Allergy/AdvReac Type Severity Reaction Status Date / Time No Known Allergies Allergy Verified 03/08/24 12:39 Family History Mother Diabetes Surgical History Aortocoronary bypass status (~12/2011) Social History household members: family Smoking Status: Light Smoker (<10/day) alcohol intake: never substance use type: does not use ROS <JANELL Nieto - Last Filed: 03/08/24 16:05> ROS ED ROS Narrative Constitutional: Negative for fever, chills, weight loss, weakness Eyes: Negative for vision loss, vision change, double vision ENT: Negative for any sore throat, ear pain, congestion Cardiovascular: Negative for any chest pain, tightness, palpitations Respiratory: Negative for any cough, sputum production, hemoptysis, dyspnea, dyspnea on exertion, orthopnea Gastrointestinal: Negative for any diarrhea, constipation, blood in stool, blood in vomit. Positive for right-sided flank pain that raise to the right abdomen, nausea and vomiting : Negative for any urinary frequency, dysuria, retention, blood in urine Muscle skeletal: Negative for any neck pain, back pain Neurological: Negative for any headache, syncope, dizziness Skin: Negative for any rashes, itching, abrasions, lacerations Psychiatric: Negative for any depression, anxiety, stress, suicidal ideation, homicidal ideation Hematologic: Negative for any excessive bruising, easy bleeding EXAM <JANELL Nieto - Last Filed: 03/08/24 16:05> Physical Exam Narrative Exam Narrative: Vital signs reviewed. Patient does appear to be uncomfortable pain to the right side that rates in the right abdomen HEET: Head normocephalic atraumatic, TMs clear bilaterally. Posterior pharynx is clear, moist mucous membranes. Nares clear bilaterally. Neck: Supple with no lymphadenopathy or tenderness. No signs of meningismus. Cardiac: Regular rate and rhythm no murmurs gallops or rubs, equal peripheral pulses bilaterally. Respiratory: Lungs clear to auscultation bilaterally. No chest tenderness. Abdomen: Soft, nondistended. No abdominal bruit or pulsatile masses. No hepatosplenomegaly. Negative for any peritoneal signs, positive for pain to the right mid to lower abdomen Extremities: No peripheral edema, no signs of gross trauma or deformity. Active full range of motion of all extremities. Neuro: Cranial nerves II through XII intact, no focal neurological deficits. Skin: Clean dry and intact with no rash, purpura, petechiae, vesicles or pustules. Backs/flank: Positive right sided CVA tenderness no midline spinal tenderness, no deformity. Psych: Normal mood and affect. No SI, HI or acute psychosis. Const Vital Signs: 03/08/24 12:39 03/08/24 14:39 Temperature 96.1 F L Temperature Source Temporal Pulse Rate 78 77 Respiratory Rate 18 14 Blood Pressure 162/102 H Blood Pressure Mean 122 Pulse Ox 98 96 Oxygen Delivery Method Room Air Room Air <Dr. Mil Olvera DO - Last Filed: 03/08/24 15:10> Physical Exam Const Vital Signs: 03/08/24 12:39 03/08/24 14:39 Temperature 96.1 F L Temperature Source Temporal Pulse Rate 78 77 Respiratory Rate 18 14 Blood Pressure 162/102 H Blood Pressure Mean 122 Pulse Ox 98 96 Oxygen Delivery Method Room Air Room Air [facility] <JANELL Nieto - Last Filed: 03/08/24 16:05> [facility] Lab Data Labs: Laboratory Results - last 24 hr 03/08/24 03/08/24 12:48 13:20 WBC 9.8 RBC 5.10 Hgb 17.3 H Hct 49.3 MCV 96.7 H MCH 33.9 H MCHC 35.1 RDW Std Deviation 46.9 H RDW Coeff of Anderw 13.1 Plt Count 184 MPV 9.7 Immature Gran % (Auto) 0.300 Neut % (Auto) 58.4 Lymph % (Auto) 28.5 [place] % (Auto) 10.4 H Eos % (Auto) 2.0 Baso % (Auto) 0.4 Absolute Neuts (auto) 5.8 Absolute Lymphs (auto) 2.80 Nucleated RBC % 0 Sodium 141 Potassium 3.6 Chloride 108 H Carbon Dioxide 24.0 Anion Gap 9 BUN 20 H Creatinine 1.04 Estim Creat Clear Calc 84.61 Est GFR (MDRD) Af Amer 94 Est GFR (MDRD) Non-Af 78 BUN/Creatinine Ratio 19.2 Glucose 108 H Calcium 9.5 Total Bilirubin 0.50 AST 22 ALT 19 Alkaline Phosphatase 118 H Total Protein 7.5 Albumin 3.9 Globulin 3.6 Albumin/Globulin Ratio 1.1 Lipase 62 Urine Color Yellow Urine Clarity Clear Urine pH 6.0 Ur Specific [place] 1.015 Urine Protein 15 H Urine Glucose (UA) Normal Urine Ketones Negative Urine Occult Blood 150 H Urine Nitrite Negative Urine Bilirubin Negative Urine Urobilinogen Normal Ur Leukocyte Esterase Negative Urine RBC 10-25 SEEN Urine WBC 0-5 SEEN Ur Squamous Epith Cells 0-5 SEEN Urine Bacteria RARE Urine Mucus 0 SEEN Radiography Diagnostic Testing: Clinical Impression(s) from Imaging Studies Abdomen/Pelvis CT 03/08/24 13:30 IMPRESSION: (NOT LISTED IN ORDER OF SIGNIFICANCE) Moderate hydronephrosis caused by two 4 mm distal right ureteral stones. Also, there are bilateral hyperdense lesions in both kidneys. Initial evaluation with ultrasound can be obtained. These may be hemorrhagic cyst. Other findings as above. Electronically Signed: Rad Mccollum MD at 15:01 EST , Treatment and Re-Evaluation :: Differential diagnosis includes however is not limited to: Obstructing uropathy, infected kidney stone, UTI, muscle strain Patient on my initial evaluation does seem to be in mild distress secondary to pain of the right flank that rates on the right abdomen. Presenting to the emergency department for this pain, no evidence to suspect any infectious process. Patient will receive a CT scan of the abdomen pelvis without contrast, I have concern for obstructing uropathy. Patient received IV Zofran, IV Toradol. Urinalysis, basic laboratory values were drawn and will be compared from previous. All radiologic examinations were read, reviewed by the emergency department attending. From these reads, a plan of care will be put in place. Patient's laboratory values show a normal CBC, patient's chemistries show a creatinine 1.04, glucose 108. Lipase was negative. Urinalysis showed 150 blood, negative for any infection. CT scan of the abdomen pelvis shows moderate hydronephrosis caused by two 4 mm distal right ureteral stones. On reevaluation after the IV Toradol, patient was resting comfortably. At this time, patient be discharged home. He will follow-up with urology. Patient be given a prescription for pain medicine, as well as Flomax, patient states he does have nausea medicine at home and he does not need another prescription. All questions were answered, patient stable for discharge. <Dr. Mil Olvera, DO - Last Filed: 03/08/24 15:10> [facility] Narrative Medical decision making narrative: I have personally performed a face to face assessment of the patient and have reviewed the MARISA Note. I performed a substantive portion of the visit including all aspects of the following. My montero findings include: History: Patient presents with right flank pain that began 4 days ago. Patient states it has been intermittent. Patient states became worse today. Patient states she was seen here a couple weeks ago for hematuria and was diagnosed with kidney stones at that time. Patient states he was told that they were in his kidney and not causing any obstruction. Patient describes his pain as cramping. Patient admits to some nausea and vomiting. Patient denies any fevers or chills. Exam: Vital signs are stable. Patient is afebrile. Patient is in no acute distress. Oral mucosa is pink and moist. Neck is supple. Trachea is midline. There is no JVD. Heart was regular rate and rhythm. Lungs are clear and equal bilaterally. Abdomen is soft. Bowel sounds are normal. There is no tenderness. There is mild right CVA tenderness. Cranial nerves II through XII are intact. There are no focal motor or sensory deficits noted. Medical Decision Making: Differential diagnosis includes ureteral calculus, pyelonephritis, urinary tract infection, and pancreatitis. CBC will be obtained to assess for leukocytosis and anemia. Comprehensive metabolic profile will be obtained to assess for hepatic function, renal function, and electrolyte abnormality. Lipase will be obtained to assess for pancreatitis. CT scan of the abdomen and pelvis was will be obtained to assess for ureteral calculus, pyelonephritis, colitis, diverticulitis, and bowel obstruction. Patient was given Toradol, and Zofran. CBC was reviewed and was essentially within normal limits. Comprehensive metabolic profile was reviewed and was within normal limits. Lipase was reviewed and was normal at 62. CT scan of the abdomen pelvis was obtained. There is moderate hydronephrosis caused by two 4 mm right distal ureteral calculi. There are questionable renal cysts, bilaterally. This was interpreted by the radiologist was also independently reviewed by myself. Patient was feeling better on reevaluation. Patient was advised of his findings. Patient was instructed to drink plenty of fluids. Patient was instructed to follow-up with his primary care physician in 5 to 7 days. Patient was instructed return if worse in any way. Patient understood and was agreeable with the plan. All questions were answered. Lab Data Labs: Laboratory Results - last 24 hr 03/08/24 03/08/24 12:48 13:20 WBC 9.8 RBC 5.10 Hgb 17.3 H Hct 49.3 MCV 96.7 H MCH 33.9 H MCHC 35.1 RDW Std Deviation 46.9 H RDW Coeff of [place] 13.1 Plt Count 184 MPV 9.7 Immature Gran % (Auto) 0.300 Neut % (Auto) 58.4 Lymph % (Auto) 28.5 [place] % (Auto) 10.4 H Eos % (Auto) 2.0 Baso % (Auto) 0.4 Absolute Neuts (auto) 5.8 Absolute Lymphs (auto) 2.80 Nucleated RBC % 0 Sodium 141 Potassium 3.6 Chloride 108 H Carbon Dioxide 24.0 Anion Gap 9 BUN 20 H Creatinine 1.04 Estim Creat Clear Calc 84.61 Est GFR (MDRD) Af Amer 94 Est GFR (MDRD) Non-Af 78 BUN/Creatinine Ratio 19.2 Glucose 108 H Calcium 9.5 Total Bilirubin 0.50 AST 22 ALT 19 Alkaline Phosphatase 118 H Total Protein 7.5 Albumin 3.9 Globulin 3.6 Albumin/Globulin Ratio 1.1 Lipase 62 Urine Color Yellow Urine Clarity Clear Urine pH 6.0 Ur Specific [place] 1.015 Urine Protein 15 H Urine Glucose (UA) Normal Urine Ketones Negative Urine Occult Blood 150 H Urine Nitrite Negative Urine Bilirubin Negative Urine Urobilinogen Normal Ur Leukocyte Esterase Negative Urine RBC 10-25 SEEN Urine WBC 0-5 SEEN Ur Squamous Epith Cells 0-5 SEEN Urine Bacteria RARE Urine Mucus 0 SEEN Radiography Diagnostic Testing: Clinical Impression(s) from Imaging Studies Abdomen/Pelvis CT 03/08/24 13:30 IMPRESSION: (NOT LISTED IN ORDER OF SIGNIFICANCE) Moderate hydronephrosis caused by two 4 mm distal right ureteral stones. Also, there are bilateral hyperdense lesions in both kidneys. Initial evaluation with ultrasound can be obtained. These may be hemorrhagic cyst. Other findings as above. Electronically Signed: Rad Mccollum MD at 15:01 EST Reading Location ID and State: [facility] / [place] , Service support , Discharge Plan Triage Chief Complaint: Flank Pain ED Midlevel Provider: Samuel Lezama ED Provider: Mil Olvera Dx/Rx/DC Orders Clinical Impression: Kidney stone, Hydronephrosis Instructions: ED Kidney Stone, Passed, ED Kidney Stone with Pain Prescriptions: New oxycodone-acetaminophen [Percocet] 5-325 mg tablet 1 tab PO Q8H PRN (Reason: pain) 3 Days Qty: 10 0RF tamsulosin [Flomax] 0.4 mg capsule 0.4 mg PO DAILY Qty: 10 0RF No Action metoprolol tartrate 25 mg tablet 25 mg PO BID hydrochlorothiazide 25 mg tablet 25 mg PO QDAY amlodipine 5 mg tablet 5 mg PO DAILY simvastatin 20 mg tablet 20 mg PO DAILY Patient Comments: TAKE 1 TABLET BY MOUTH ONCE DAILY citalopram 20 mg tablet 20 mg PO DAILY levothyroxine 50 mcg tablet 50 mcg PO DAILY Rx Instructions: except skip sundays potassium chloride 20 mEq tablet extended release 20 meq PO BID aspirin 325 mg capsule 325 mg PO DAILY prednisone 20 mg tablet 60 mg PO DAILY Qty: 12 0RF ibuprofen 600 mg tablet 600 mg PO Q6H PRN PRN (Reason: pain) Qty: 20 0RF amoxicillin-pot clavulanate 875-125 mg tablet 1 tab PO BID 7 Days Qty: 14 0RF Primary Care Provider: Becky Crook Referrals: Becky Crook DO [Primary Care Provider] - Kamran Alanis MD [Med Staff - Active Staff] - Activity Restrictions/Additional Instructions: Please follow-up outpatient. Take the pain medicine as needed, use the Flomax daily. Follow-up with urology if needed. Print Language: Kinyarwanda Disposition Disposition: Home, Self Care
[2024-03-08] MEDS: Ondansetron 4 MG/2 ML Vial IV (13:38)
[2024-03-08] MEDS: Ketorolac 15 MG/ML Vial IV (13:38)
--- NOTE | 2024-03-08 13:45 | ED.RN ---
Patient transported to radiology
[2024-03-08 13:47] LABS: Absolute Neutrophil Count 5.8 X10^3/uL (2.0-7.7); Basophil# 0.04 X10^3/uL; Basophil% 0.4 % (0-1); Hematocrit 49.3 % (40-54); Hemoglobin 17.3 g/dL (13.0-16.5); Lymphocyte % 28.5 % (19-41); Mean Corp Hgb Conc 35.1 g/dL (32-36); Mean Corpuscular Hgb 33.9 pg (27.0-32.0); Mean Corpuscular Volume 96.7 fL (80-94); Mean Platelet Vol. 9.7 fl (6.2-12.0); Monocyte# 1.02 X10^3/uL; Monocyte% 10.4 % (0-10); NRBC Flagged by Analyzer 0 % (0-5); Neutrophil # 5.75 X10^3/uL (2.7-7.7); Neutrophil % 58.4 % (47-70); Platelet Count 184 K/mm3 (150-450); RBC Distribution Width CV 13.1 % (11.6-14.6); RBC Distribution Width SD 46.9 fl (35.1-43.9); White Blood Count 9.8 K/mm3 (4.4-11.0)
[2024-03-08 14:02] LABS: ALB/GLOB Ratio 1.1 RATIO (0.9-2.4); AST(SGOT) 22 U/L (15-37); Alanine Aminotransfer ALT/SGPT 19 U/L (16-61); Albumin, Serum 3.9 g/dL (3.2-5.0); Alkaline Phosphatase 118 U/L (45-117); Anion Gap 9 (5-15); BUN 20 mg/dL (7-18); BUN/Creat Ratio 19.2 RATIO (10-20); Calcium,Total 9.5 mg/dL (8.5-10.1); Chloride 108 mmol/L (98-107); Creatinine, Serum 1.04 mg/dL (0.70-1.30); EST Glomerular Filtration Rate 78 mL/min (>60); Est Glom Filt Rate - Afr Amer 94 mL/min (>60); Estimated Creatinine Clearance 84.61 ml/min; Globulin 3.6 g/dL (2.2-4.2); Glucose 108 mg/dL (74-106); Lipase 62 U/L (13-75); Potassium 3.6 mmol/L (3.5-5.1); Protein, Total 7.5 g/dL (6.4-8.2); Sodium Level 141 mmol/L (136-145)
[2024-03-08 14:39] VITALS: PULSE 77; RESP 14; O2SAT 96
[2024-03-08 15:33] LABS: Mucous, Urine 0 SEEN /hpf (<or=2+)
[2024-03-08 15:37] LABS: Color, Urine Yellow (Yellow); Glucose, Dipstick Normal (Normal); Ketone-Dipstick Negative (Negative); Leukocyte Esterase-Dipstick Negative /ul (Negative); Nitrite-Dipstick Negative (Negative); Occult Blood-Urine 150 /ul (Negative); Protein-Dipstick 15 mg/dl (Negative); Specific Gravity, Urine 1.015 (1.002-1.030); Urine Bilirubin Dipstick Negative (Negative); Urine Clarity Clear (Clear); Urine Urobilinogen Normal (Normal)
[2024-03-08 15:53] LABS: Red Blood Cells-Urine 10-25 SEEN /hpf (0-5); White Blood Cells 0-5 SEEN /hpf (0-5)
[2024-03-08 15:54] LABS: Bacteria RARE /hpf (None Seen); Squamous Epithelial Cells - UA 0-5 SEEN /hpf (0-5)
[2024-03-08 16:00] VITALS: PULSE 88; RESP 16; O2SAT 96
[2024-03-08 16:05] VITALS: BP 162/102; PULSE 88; RESP 16; TEMP 35.6; O2SAT 96
== END 2024-03-08 16:13 | disposition home or self-care (01) ==
PROVIDERS: Nurse Practitioner; Emergency Provider Emergency Medicine; PCP Internal Medicine; Visit Provider Emergency Medicine
DX: N13.2 Hydronephrosis with renal and ureteral calculous obstruction (principal); I10 Essential (primary) hypertension; E78.5 Hyperlipidemia, unspecified; F17.200 Nicotine dependence, unspecified, uncomplicated; I25.10 Atherosclerotic heart disease of native coronary artery without angina pectoris; E03.9 Hypothyroidism, unspecified; Z79.899 Other long term (current) drug therapy; I25.2 Old myocardial infarction; Z79.890 Hormone replacement therapy; Z79.82 Long term (current) use of aspirin
CPT/HCPCS: 74176; 80053; 81001; 83690; 85025; 96374; 96375; 99282; A4216; J2405